=== PATIENT | male | born 1970 | race Caucasian/White ===

== ENCOUNTER 2018-12-20 | Emergency (ER) | payer BC, OTHER | END 2018-12-20 20:26 | disposition home or self-care (01) | CPT/HCPCS: 99499 ==

== ENCOUNTER 2021-05-08 11:11 | Observation (INO) | payer OTHER ==
[2021-05-08] MEDS ORDERED: KETOROLAC 15 MG/ML 1 ML VIAL IVP STA ×2 (11:45→14:22)
--- NOTE | 2021-05-08 11:56 | ED ---
General Adult HPI <Irving Ma - Last Filed: 05/08/21 22:37> - General Source: patient, RN notes reviewed Mode of arrival: ambulatory Limitations: no limitations <Lisa Chavez - Last Filed: 05/08/21 23:33> - General Chief complaint: Extremity Injury, Lower Stated complaint: leg pin Time Seen by Provider: 05/08/21 11:31 - History of Present Illness Initial comments: 50-year-old male presents to the emergency Department with complaints of bilateral lower extremity pain that has been an ongoing issue for several months, but has worsened over the past week and a half to 2 weeks. Pain is not localized, but is worse in the upper portion of the legs; no aggravating or alleviating factors. Describes pain as a constant discomfort similar to a headache or toothache. Able to ambulate without difficulty. States he does not like taking medications therefore has only attempted to treat his symptoms with topical agents. Patient denies injury or trauma, no prolonged immobilization or recent travel, activity changes, fever or chills, chest pain or shortness of breath, abdominal pain, or back pain. (Lisa Chavez) - Related Data Home Medications Medication Instructions Recorded Confirmed Aspirin EC [Ecotrin Low Dose] 81 mg PO DAILY PRN 05/08/21 05/08/21 Allergies Allergy/AdvReac Type Severity Reaction Status Date / Time hydralazine Allergy Unknown Verified 05/08/21 16:58 unknown b/p med AdvReac joint pain Uncoded 05/08/21 14:21 Review of Systems ROS Other: All systems not noted in ROS Statement are negative. <Irving Ma - Last Filed: 05/08/21 22:37> ROS Other: All systems not noted in ROS Statement are negative. <Lisa Chavez - Last Filed: 05/08/21 23:33> ROS Statement: Those systems with pertinent positive or pertinent negative responses have been documented in the HPI. Past Medical History Past Medical History: Hypertension Additional Past Medical History / Comment(s): AAA History of Any Multi-Drug Resistant Organisms: None Reported Additional Past Surgical History / Comment(s): AAA repair Past Psychological History: No Psychological Hx Reported Smoking Status: Never smoker Past Alcohol Use History: Occasional Past Drug Use History: Marijuana <Lisa Chavez - Last Filed: 05/08/21 23:33> General Exam Limitations: no limitations (Well-developed, well-nourished male in no acute distress. Initial temperature 98.1, pulse 108, respirations 18, blood pressure 193/107, pulse ox 99% on room air) General appearance: alert, in no apparent distress Head exam: Present: atraumatic, normocephalic, normal inspection Neck exam: Present: normal inspection. Absent: tenderness, meningismus, lym phadenopathy Respiratory exam: Present: normal lung sounds bilaterally. Absent: respiratory distress, wheezes, rales, rhonchi, stridor Cardiovascular Exam: Present: regular rate, normal rhythm, normal heart sounds. Absent: systolic murmur, diastolic murmur, rubs, gallop, clicks GI/Abdominal exam: Present: soft, normal bowel sounds. Absent: distended, tenderness, guarding, rebound, rigid Left Hip exam: Present: normal inspection, full ROM. Absent: tenderness, swelling Upper Leg exam: Present: normal inspection, full ROM. Absent: tenderness, swelling Knee exam: Present: normal inspection, full ROM. Absent: tenderness, swelling Lower Leg exam: Present: full ROM, swelling (Trace pitting edema of the lower leg). Absent: tenderness, erythema, Homans' sign Ankle exam: Present: normal inspection, full ROM. Absent: tenderness, swelling Foot/Toe exam: Present: normal inspection, full ROM. Absent: tenderness, swelling Neurovascular tendon exam: Present: no vascular compromise. Absent: pulse deficit, abnormal cap refill, motor deficit, sensory deficit Right Hip exam: Present: normal inspection, full ROM. Absent: tenderness, swelling Upper Leg exam: Present: normal inspection, full ROM. Absent: tenderness, swelling Knee exam: Present: normal inspection, full ROM. Absent: tenderness, swelling Lower Leg exam: Present: full ROM, swelling (Trace pitting edema of the lower leg). Absent: tenderness, erythema, Homans' sign Ankle exam: Present: normal inspection, full ROM. Absent: tenderness, swelling Foot/Toe exam: Present: normal inspection, full ROM. Absent: tenderness, swelling Neurovascular tendon exam: Present: no vascular compromise. Absent: pulse deficit, abnormal cap refill, motor deficit, sensory deficit Back exam: Present: normal inspection. Absent: tenderness Neurological exam: Present: alert, oriented X3, CN II-XII intact Psychiatric exam: Present: normal affect, normal mood Skin exam: Present: warm, dry, intact, normal color. Absent: rash <Lisa Chavez - Last Filed: 05/08/21 23:33> Course <Irving Ma - Last Filed: 05/08/21 22:37> <Lisa Chavez - Last Filed: 05/08/21 23:33> Vital Signs 05/08/21 05/08/21 05/08/21 11:15 12:59 16:48 Temperature 98.1 F Pulse Rate 108 H 95 101 H Respiratory 18 19 19 Rate Blood Pressure 193/107 190/109 196/110 O2 Sat by Pulse 99 98 98 Oximetry 05/08/21 05/08/21 05/08/21 17:49 18:35 18:45 Temperature Pulse Rate 81 81 Respiratory Rate Blood Pressure 177/107 166/103 166/103 O2 Sat by Pulse 94 L 95 Oximetry 05/08/21 05/08/21 05/08/21 19:00 19:15 19:30 Temperature Pulse Rate 75 76 78 Respiratory 18 17 18 Rate Blood Pressure 142/86 120/90 145/88 O2 Sat by Pulse 93 L 93 L 92 L Oximetry 05/08/21 05/08/21 05/08/21 20:00 20:30 21:00 Temperature Pulse Rate 78 77 81 Respiratory 16 17 Rate Blood Pressure 138/94 134/81 O2 Sat by Pulse 95 92 L 95 Oximetry 05/08/21 21:30 Temperature Pulse Rate 85 Respiratory 17 Rate Blood Pressure 134/82 O2 Sat by Pulse 95 Oximetry - Reevaluation(s) Reevaluation #1: 05/08/21 19:13 I became involved in the patient's care after CT angiogram chest report was received and discussed with me by JASON Chavez. CT showed thoracic aorta dissection. I discussed these findings with the radiologist that read the study, and he recommended obtaining a CT angiogram abdomen/pelvis for further evaluation. The patient's blood pressure was further managed with IV labetalol while this CT was being obtained. Upon receiving the CT angiogram abdomen/pelvis findings, Dr. Avila (vascular surgery) was called and the patient's case and imaging findings were discussed with him myself. Dr. Avila reviewed the patient's imaging studies himself. He recommended transferring the patient to [facility] where the patient had his prior aortic dissection repair surgery. 05/08/21 19:44 Patient's case and imaging findings today were discussed with Dr. Philip at the [facility]. He states that he feels that the patient's imaging findings today are likely chronic when he compares them to the imaging findings that he has on record through the [facility] system. He asks that we forward our images to them, so he can compare the imaging studies himself, and he states that he will then call back with his recommendations. 05/08/21 20:34 Still awaiting callback from [facility]. Patient's blood pressure has currently improved to 120/90. Patient denies development of any new pain or symptoms while in the ED. 05/08/21 21:[address] [facility] [address] Yasmine Recinos just called me and she sta norma that she electronically received the patient's study images from today. She states that the patient's images were reviewed by their cardiothoracic surgeon, Dr. Gutierrez, and compared to the most recent images that they have on record for the patient. She states that all the patient's imaging findings are chronic and unchanged with regards to his dissections. They do not feel that there is any r bethanie to transfer the patient out of our facility due to these findings. 05/08/21 22:08 Dr. Frey was contacted and updated about all of the above. He states that he feels comfortable keeping the patient here at our hospital and managing and patient himself as originally planned. He has no further recommendations at this time. (Irving Ma) 05/08/21 11:57 Discussed elevated blood pressure and heart rate with patient who states he is not surprised. He acknowledges that he is supposed to be taking blood pressure medications, however states he has not been to the doctor in a year or more. 05/08/21 14:[address] Frey regarding this patient's elevated blood pressure and medication noncompliance. He prefers to admit this patient for observation in effort to get blood pressure under control. Does request the patient has a d- dimer and follow-up studies as necessary given his history. Oral antihypertensive medications ordered per Dr. Frey's direction. Plan of care discussed with patient. He is agreeable. 05/08/21 17:44 CT report was reviewed showing some alarming findings therefore spoke with my attending who assisted in for the evaluation and treatment of this patient. Patient reassessed with physician at bedside and continues to insist that he has no neck, back, chest, or abdominal pain. Reports discomfort in his legs has improved considerably. (Lisa Chavez) Medical Decision Making - Lab Data Result diagrams: 05/08/21 12:03 05/08/21 12:03 <Irving Ma - Last Filed: 05/08/21 22:37> - Lab Data Result diagrams: 05/08/21 12:03 05/08/21 12:03 - Radiology Data Radiology results: report reviewed, image reviewed <Lisa Chavez - Last Filed: 05/08/21 23:33> - Medical Decision Making This is a 50-year-old male with a history of AAA repair and hypertension who presents to the emergency Department with complaints of bilateral lower extremity pain. Patient does not take any medications and has had poor compliance with medical care due to issues with insurance. Upon exam, patient is well-appearing and in no acute distress. Lung sounds are clear; heart rate is regular. He is constantly moving his legs in attempt to find a position of comfort. Trace pitting lower extremity edema noted bilaterally. Pedal pulses +2 bilateral. Patient is ambulating without difficulty. Patient is noted to be hypertensive (193/107) which was discussed with patient and he states he is no longer taking any medications. Also spoke with patient about his past medical h istory significant for an aortic dissection; he states this occurred 7 years ago and his care was done at [facility]. Laboratory studies were obtained showing macrocytosis, elevated total bilirubin and AST, though patient does admit to drinking EtOH last night, and an elevated d-dimer. CTs of the chest, abdomen, and pelvis had findings concerning extensive aortic dissection; this was determined to be chronic (as detailed above). Physical exam findings support this conclusion. Anti-hypertensives given with improvement. Leg pain improved with meds. Patient is admitted to this hospital for further evaluation and treatment. This patient's care was facilitated in cooperation with my attending Dr. Ma. (Lisa Chavez) - Lab Data Lab Results 05/08/21 05/08/21 Range/Units 12:03 12:03 WBC 5.5 (3.8-10.6) k/uL RBC 4.28 L (4.30-5.90) m/uL Hgb 16.1 (13.0-17.5) gm/dL Hct 46.3 (39.0-53.0) % MCV 108.1 H (80.0-100.0) fL MCH 37.7 H (25.0-35.0) pg MCHC 34.9 (31.0-37.0) g/dL RDW 15.1 (11.5-15.5) % Plt Count 141 L (150-450) k/uL MPV 7.5 Neutrophils % 58 % Lymphocytes % 30 % Monocytes % 7 % Eosinophils % 2 % Basophils % 1 % Neutrophils # 3.2 (1.3-7.7) k/uL Lymphocytes # 1.7 (1.0-4.8) k/uL Monocytes # 0.4 (0-1.0) k/uL Eosinophils # 0.1 (0-0.7) k/uL Basophils # 0.0 (0-0.2) k/uL Macrocytosis Marked A Sodium 144 (137-145) mmol/L Potassium 4.0 (3.5-5.1) mmol/L Chloride 106 (98-107) mmol/L Carbon Dioxide 26 (22-30) mmol/L Anion Gap 12 mmol/L BUN <2 L (9-20) mg/dL Creatinine 0.82 (0.66-1.25) mg/dL Est GFR (CKD-EPI)AfAm >90 (>60 ml/min/1.73 sqM) Est GFR (CKD-EPI)NonAf >90 (>60 ml/min/1.73 sqM) Glucose 127 H (74-99) mg/dL Calcium 8.4 (8.4-10.2) mg/dL Total Bilirubin 3.0 H (0.2-1.3) mg/dL AST 158 H (17-59) U/L ALT 34 (4-49) U/L Alkaline Phosphatase 92 (38-126) U/L Total Protein 6.6 (6.3-8.2) g/dL Albumin 3.4 L (3.5-5.0) g/dL - Radiology Data Venous Doppler study was obtained of the bilateral lower extremities. Report was reviewed in its entirety. Impression per Dr. Mann is normal flow, compressibility, and vascular waveforms. No DVT of the bilateral lower extremities. CT chest anterior was obtained. Report was reviewed in its entirety. Im pression per Dr. 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 Lower extent of the dissection not included on the exam. The dissection extends below the diaphragm. No evidence of pulmonary embolism. Fa tty infiltration of the liver. CT angiogram of the and pelvis was obtained. Report was reviewed in its entirety. Impression per Dr. Guzmán is dissection of the abdominal aorta extending into the iliac arteries bilaterally as above. 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 There is also dissection extending into the superior mesenteric artery. 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 Multiple gallstones. Fatty infiltration of the liver. Extensive a mass appears to contain some fat in the upper pole of the right kidney could be angiomyolipoma or atypical cyst. (Lisa Chavez) Disposition <Irving Ma - Last Filed: 05/08/21 22:37> Decision Time: 14:30 <Lisa Chavez - Last Filed: 05/08/21 23:33> Clinical Impression: Leg pain, bilateral, Hypertensive urgency Disposition: ADMITTED IP TO THIS HOSP Condition: Serious
[2021-05-08 12:10] LABS: Basophils % (A) 1 %; Eosinophils # (A) 0.1 k/uL (0-0.7); Eosinophils % (A) 2 %; HCT 46.3 % (39.0-53.0); HGB 16.1 gm/dL (13.0-17.5); Lymphocytes # (A) 1.7 k/uL (1.0-4.8); Lymphocytes % (A) 30 %; MCH 37.7 pg (25.0-35.0); MCHC 34.9 g/dL (31.0-37.0); MCV 108.1 fL (80.0-100.0); Macrocytosis Marked; Mean Platelet Volume 7.5; Monocytes # (A) 0.4 k/uL (0-1.0); Monocytes % (A) 7 %; Neutrophils # (A) 3.2 k/uL (1.3-7.7); Neutrophils % (A) 58 %; Platelet Count 141 k/uL (150-450); RBC 4.28 m/uL (4.30-5.90); RDW 15.1 % (11.5-15.5); WBC 5.5 k/uL (3.8-10.6)
[2021-05-08 12:19] LABS: ALT 34 U/L (4-49); AST 158 U/L (17-59); African American GFR (CKD) >90 (>60 ml/min/1.73 sqM); Albumin 3.4 g/dL (3.5-5.0); Alkaline Phosphatase 92 U/L (38-126); Anion Gap 12 mmol/L; Blood Urea Nitrogen <2 mg/dL (9-20); Calcium 8.4 mg/dL (8.4-10.2); Carbon Dioxide 26 mmol/L (22-30); Chloride 106 mmol/L (98-107); Glucose 127 mg/dL (74-99); Non-African American GFR(CKD) >90 (>60 ml/min/1.73 sqM); Sodium 144 mmol/L (137-145); Total Protein 6.6 g/dL (6.3-8.2)
--- NOTE | 2021-05-08 13:10 | US ---
EXAMINATION TYPE: US venous doppler duplex LE DATE OF EXAM: 05/08/2021 12:58 PM COMPARISON: NONE CLINICAL HISTORY: BLE edema and pain. EC patient with leg pain, especially calf pain; Wears compressi on stocking left lower leg. SIDE PERFORMED: Bilateral TECHNIQUE: The lower extremity deep venous system is examined utilizing real time linear array sonog milady with graded compression, doppler sonography and color-flow sonography. VESSELS IMAGED: Common Femoral Vein Deep Femoral Vein Greater Saphenous Vein * Femoral Vein Popliteal Vein Small Saphenous Vein * Proximal Calf Veins (* superficial vessels) Right Leg: Negative for DVT Left Leg: Negative for DVT IMPRESSION: Grayscale, color doppler, spectral doppler imaging performed of the deep veins of the lo wer extremities. There is normal flow, compressibility, vascular waveforms No DVT of the bilateral lower extremities.
[2021-05-08] MEDS ORDERED: HYDROcodone/APAP 5-325MG 1 EACH TAB PO STA (14:43)
[2021-05-08] MEDS ORDERED: LOSARTAN 50 MG TAB PO STA (15:38)
[2021-05-08] MEDS ORDERED: cloNIDine HCL 0.1 MG TAB PO STA (15:38)
[2021-05-08] MEDS ORDERED: HYDROcodone/APAP 5-325MG 1 EACH TAB PO PRN (15:39)
[2021-05-08] MEDS ORDERED: IBUPROFEN 400 MG TAB PO PRN (15:39)
[2021-05-08] MEDS ORDERED: NALOXONE 0.4 MG/ML 1 ML VIAL IV PRN (15:39)
--- NOTE | 2021-05-08 16:17 | HP ---
HISTORY AND PHYSICAL CHIEF COMPLAINT: Pain in the lower extremities. HISTORY OF PRESENT ILLNESS: This is another admission for this gentleman who was treated in the past for hypertension. He has a history going back to 2013, when he had a surgical procedure which probably was related to the ascending aorta. He might have had a dissection. He is unclear of the history and I do not have all the details. He does have a history of significant hypertension and has not been seen since September of 2018. He has been on no medications of late. At that time he was on clonidine, losartan, , labetalol and SBE prophylaxis. He presented to the emergency room with pain in the lower extremities, where he had no significant evidence of vascular insufficiency, neurologic insufficiency, swelling, etc. In the emergency room his blood pressure was 194/109. REVIEW OF SYSTEMS: He denies any headache, neurologic deficits, change in the vision or the hearing, chest pain, cough, hemoptysis, orthopnea, PND, abdominal pain, nausea, vomiting, diarrhea, melena, hematochezia, jaundice, hepatitis, cirrhosis, hematuria, frequency, urgency, incontinence, diabetes, etc. Past medical history, family history, and personal and social histories are all otherwise essentially unremarkable except for what was already mentioned. He CANNOT TAKE HYDRALAZINE. He has been told in the past that he had a mass on one kidney. He is not a smoker. PHYSICAL EXAMINATION: Blood pressure is 190/99 with a pulse of 91, respirations of 32. He is afebrile. In general he appeared to be well developed, well nourished, in no acute distress. Skin color is normal. Skin is warm and dry. Lymph nodes are not enlarged. Head, ears, eyes, nose, mouth and throat are normal. Neck veins are not distended. Thyroid is not enlarged. Chest is clear. Cardiac exam demonstrates sinus tachycardia. The abdomen is soft and non-tender. Extremities are normal. There is no edema. He has normal motor function and he seems to have palpable pulses. Neurologically he is intact. He is admitted to the hospital with the diagnoses: 1. Pain in the lower extremities. 2. Hypertension; hypertensive urgency. 3. History of aortic dissection. PLAN: 1. Bedrest. 2. D-dimer. 3. Control hypertension. 4. Rule out aortic disease. 5. Rule out vascular disease of lower extremities. MMODL / IJN: [id number] /
--- NOTE | 2021-05-08 17:47 | CT ---
EXAMINATION TYPE: CT chest angio for PE DATE OF EXAM: 05/08/2021 COMPARISON: None HISTORY: Elevated d-dimer and bilateral leg pain. History of AAA repair. CT DLP: 829.2 mGycm Automated exposure control for dose reduction was used. CONTRAST: Performed with IV Contrast, patient injected with 100ml mL of Isovue 370. Images obtained from the thoracic inlet to the diaphragm with IV contrast. There are 3-D post process ed images. The lungs are clear of infiltrate. There is no pleural effusion. There is no pericardial effusion. He art size is fairly normal. There is dissection of the thoracic aorta extending from the top of the aortic arch and involving the entire descending thoracic aorta extending into the abdominal aorta. The true lumen is anterior and small. There is dissection extending into the left subclavian artery. The innominate artery and the l eft common carotid artery show no sign of dissection. The aortic arch measures 4.1 cm. There is no evidence of filling defect in the pulmonary arteries. There is some fatty infiltration of the liver. Lasix spine is intact. Sternum is intact. There are sternal wires. IMPRESSION: There is dissecting thoracic aortic aneurysm extending from the left subclavian artery and involving the left subclavian artery. Lower extent of the dissection not included on the exam. The dissection e xtends below the diaphragm. No evidence of pulmonary embolism. Fatty infiltration of the liver.
[2021-05-08] MEDS ORDERED: LABETALOL 5 MG/ML VIAL MDV IVP STA (18:12)
--- NOTE | 2021-05-08 18:51 | CT ---
EXAMINATION TYPE: CT angio abdomen pelvis DATE OF EXAM: 05/08/2021 COMPARISON: None HISTORY: Bilateral leg pain. History of AAA repair. CT DLP: 1329.2 mGycm Automated exposure control for dose reduction was used. CONTRAST: Performed with IV Contrast, patient injected with 100ml mL of Isovue 370. There are 3-D post processed images. There is fatty infiltration of the liver. The bile ducts are not dilated. There are calcified small g allstones. Spleen is intact. The stomach is intact. There is no pancreatic mass. There is no adrenal mass. Kidneys show satisfactory contrast opacification. There is no hydronephrosi s. There is 2.6 cm mixed density mass upper pole right kidney. This could be angiomyolipoma. There is no mesenteric edema. There is no ascites or free air. There is no bowel obstruction. Appendi x is normal. The lumbar vertebra have normal alignment. Posterior elements are intact. There is no compression fra cture. Bony pelvis is intact. There is dissection of the thoracic aorta and the abdominal aorta. The true lumen is anterior and on the right side and relatively small. The dissection extends from the thoracic aorta to the common trip ac arteries bilaterally. Dissection extends into the right internal and external iliac arteries as we ll. There is arterial flow in both femoral arteries. No evidence of hemodynamic stenosis of the femor al and iliac arteries. There is arterial flow in the superior mesenteric artery. There appears to be thrombosis in the super ior mesenteric artery 6 cm from the origin. 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 There i s arterial flow in both renal arteries without evidence of hemodynamic stenosis. IMPRESSION: There is dissection of the abdominal aorta extending into the iliac arteries bilaterally as above. Th ere is 2.6 cm aneurysm of the left common iliac artery. There is there is also dissection extending into the superior mesenteric artery. There is subtotal oc clusion of the celiac artery. 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 Multiple small gallstones. Fatty infiltration of the liver. Mixed density mass appears to contain some fat in the upper pole right kidney could be angiomyolipoma or atypical cyst.
[2021-05-08 19:07] LABS: INR 1.2 (<1.2); Partial Thromboplastin Time 26.7 sec (22.0-30.0); Prothrombin Time 12.1 sec (9.0-12.0)
[2021-05-09] MEDS: LABETALOL 100 MG TAB PO SCH (08:31)
[2021-05-09 08:42] LABS: Basophils % (A) 0 %; Eosinophils % (A) 1 %; HCT 42.5 % (39.0-53.0); Lymphocytes # (A) 0.7 k/uL (1.0-4.8); Lymphocytes % (A) 11 %; MCH 37.6 pg (25.0-35.0); MCHC 35.3 g/dL (31.0-37.0); MCV 106.4 fL (80.0-100.0); Macrocytosis Moderate; Mean Platelet Volume 7.8; Monocytes # (A) 0.3 k/uL (0-1.0); Monocytes % (A) 5 %; Neutrophils # (A) 4.9 k/uL (1.3-7.7); Neutrophils % (A) 82 %; Platelet Count 113 k/uL (150-450); RBC 3.99 m/uL (4.30-5.90); RDW 14.2 % (11.5-15.5)
[2021-05-09 08:57] LABS: African American GFR (CKD) >90 (>60 ml/min/1.73 sqM); Anion Gap 8 mmol/L; Blood Urea Nitrogen 2 mg/dL (9-20); Calcium 8.5 mg/dL (8.4-10.2); Carbon Dioxide 25 mmol/L (22-30); Chloride 102 mmol/L (98-107); Glucose 123 mg/dL (74-99); Non-African American GFR(CKD) >90 (>60 ml/min/1.73 sqM); Potassium 3.9 mmol/L (3.5-5.1); Sodium 135 mmol/L (137-145)
[2021-05-09] MEDS ORDERED: ASPIRIN 81 MG PO PRN (11:51)
[2021-05-09] MEDS: lisinopriL 20 MG TAB PO SCH (12:36)
[2021-05-09] MEDS: DOXAZOSIN 4 MG TAB PO SCH (12:36)
[2021-05-09] MEDS: cloNIDine HCL 0.1 MG TAB PO SCH ×3 (12:37→21:13)
--- NOTE | 2021-05-09 13:45 | PN ---
PROGRESS NOTE CHIEF COMPLAINT: Back and leg pain with hypertensive urgency. HISTORY OF PRESENT ILLNESS: This gentleman is doing better. He is not having any chest pain, shortness of breath, abdominal pain, etc. The pains that he has been getting, apparently, are shooting pains in the legs. PHYSICAL EXAMINATION: Chest is clear. Cardiac exam is normal. Abdomen is protuberant, soft and nontender. Extremities are normal. IMPRESSION: 1. Back and leg pain, etiology unknown. 2. Hypertensive urgency. 3. History of aortic dissection. PLAN: Increase medication program in an effort to drive his blood pressure into normal range. Once that is accomplished, he can be discharged. MMODL / IJN: [id number] /
[2021-05-10 08:53] VITALS: TEMP 97.9
[2021-05-10] MEDS: lisinopriL 20 MG TAB PO SCH (09:03)
[2021-05-10] MEDS: cloNIDine HCL 0.1 MG TAB PO SCH ×2 (09:04→16:42)
[2021-05-10] MEDS: LABETALOL 100 MG TAB PO SCH (09:04)
[2021-05-10] MEDS: DOXAZOSIN 4 MG TAB PO SCH (09:04)
[2021-05-10 11:47] VITALS: BP 144/84; PULSE 66; RESP 18
--- NOTE | 2021-05-10 19:19 | DS ---
DISCHARGE SUMMARY CHIEF COMPLAINT: Back pain and dysesthesias in the legs. HISTORY OF PRESENT ILLNESS AND PHYSICAL EXAMINATION: Details of this man's history and physical can be found in the initial workup. LABORATORY STUDIES: While he was in the hospital he had laboratory studies, details of which can be found in the laboratory section of his chart. COURSE IN THE HOSPITAL: After admission he was placed on bedrest, started on intravenous fluids, and efforts were made to bring his blood pressure down as quickly as possible. There was concern that he may have an aortic dissection, but his suggested that there had been no change since his last evaluation several years ago. In the hospital he did well. Blood pressures were brought fairly quickly. He had no further difficulty with back pain, dysesthesias in the legs, etc. It was felt that he could be discharged, and he will be followed up in the office in several days. FINAL DIAGNOSIS: 1. Hypertensive urgency. 2. History of aortic dissection. OPERATIONS: None. CONSULTATION: Cardiology. He is improved. MMODL / IJN: [id number] /
== END 2021-05-10 17:00 | disposition home or self-care (01) ==
LOC: EC 11:11 → 3SCARD 15:33
PROVIDERS: ADMIT Family Medicine; ATTEND Family Medicine
DX: I16.0 Hypertensive urgency (principal); I71.01 Dissection of thoracic aorta; I10 Essential (primary) hypertension; N28.89 Other specified disorders of kidney and ureter; D75.89 Other specified diseases of blood and blood-forming organs; R79.89 Other specified abnormal findings of blood chemistry; R79.1 Abnormal coagulation profile; I72.3 Aneurysm of iliac artery; K76.0 Fatty (change of) liver, not elsewhere classified; K80.20 Calculus of gallbladder without cholecystitis without obstruction; I71.4 Abdominal aortic aneurysm, without rupture; M54.9 Dorsalgia, unspecified; M79.604 Pain in right leg; M79.605 Pain in left leg; Z20.822 Contact with and (suspected) exposure to COVID-19; Z91.128 Patient's intentional underdosing of medication regimen for other reason; T46.5X6A Underdosing of other antihypertensive drugs, initial encounter; Z91.19 Patient's noncompliance with other medical treatment and regimen; Z86.79 Personal history of other diseases of the circulatory system; Z88.8 Allergy status to other drugs, medicaments and biological substances
CPT/HCPCS: 96374; 96375; 99285; 36415; 85379; 80053; 80048; 84484; 85025 ×2; 85610; 85730; 83036; 87635; 93970; 71275; 74174; G0378 ×3; J1885; Q9967

== ENCOUNTER 2021-05-19 20:04 | Emergency (ER) | payer OTHER ==
[2021-05-19 20:41] LABS: Basophils % (A) 1 %; Eosinophils # (A) 0.1 k/uL (0-0.7); Eosinophils % (A) 1 %; HCT 42.3 % (39.0-53.0); HGB 14.7 gm/dL (13.0-17.5); Lymphocytes # (A) 0.9 k/uL (1.0-4.8); Lymphocytes % (A) 10 %; MCH 37.7 pg (25.0-35.0); MCHC 34.6 g/dL (31.0-37.0); MCV 108.9 fL (80.0-100.0); Macrocytosis Marked; Mean Platelet Volume 7.8; Monocytes # (A) 0.3 k/uL (0-1.0); Monocytes % (A) 4 %; Neutrophils # (A) 7.5 k/uL (1.3-7.7); Neutrophils % (A) 84 %; RBC 3.89 m/uL (4.30-5.90); RDW 13.8 % (11.5-15.5); WBC 8.9 k/uL (3.8-10.6)
[2021-05-19 20:42] LABS: Platelet Count 192 k/uL (150-450)
[2021-05-19 20:54] LABS: INR 1.1 (<1.2); Partial Thromboplastin Time 25.8 sec (22.0-30.0); Prothrombin Time 11.8 sec (9.0-12.0)
[2021-05-19 21:09] LABS: ALT 24 U/L (4-49); AST 110 U/L (17-59); African American GFR (CKD) >90 (>60 ml/min/1.73 sqM); Albumin 3.2 g/dL (3.5-5.0); Alkaline Phosphatase 89 U/L (38-126); Anion Gap 10 mmol/L; Blood Urea Nitrogen 4 mg/dL (9-20); Calcium 8.5 mg/dL (8.4-10.2); Carbon Dioxide 26 mmol/L (22-30); Chloride 105 mmol/L (98-107); Glucose 136 mg/dL (74-99); Magnesium 1.4 mg/dL (1.6-2.3); Non-African American GFR(CKD) >90 (>60 ml/min/1.73 sqM); Potassium 4.3 mmol/L (3.5-5.1); Sodium 141 mmol/L (137-145); Total Bilirubin 1.8 mg/dL (0.2-1.3); Total Protein 6.3 g/dL (6.3-8.2)
[2021-05-19] MEDS ORDERED: PANTOPRAZOLE 40 MG/10 ML VIAL IVP STA (21:46)
[2021-05-19] MEDS ORDERED: ONDANSETRON 4 MG/2 ML VIAL IVP STA (21:46)
[2021-05-19] MEDS ORDERED: MORPHINE SULFATE 4 MG/ML SYRINGE IVP STA (21:46)
[2021-05-19] MEDS ORDERED: SODIUM CHLORIDE 0.9% 1,000 ML IV STA (21:46)
--- NOTE | 2021-05-19 21:47 | XR ---
EXAMINATION TYPE: XR chest 2V DATE OF EXAM: 05/19/2021 COMPARISON: NONE HISTORY: Chest pain TECHNIQUE: Frontal and lateral views of the chest are obtained. FINDINGS: There is no focal air space opacity. No evidence for pneumothorax. No pleural effusion. The cardiac silhouette size is within normal limits. The osseous structures are grossly intact. IMPRESSION: 1. No acute cardiopulmonary process.
--- NOTE | 2021-05-19 22:07 | ED ---
Chest Pain HPI - General Chief Complaint: Chest Pain Stated Complaint: Chest Pain Time Seen by Provider: 05/19/21 21:36 Source: patient, RN notes reviewed, old records reviewed Mode of arrival: ambulatory Limitations: no limitations - History of Present Illness Initial Comments: This is a 50-year-old male to the ER for evaluation today. Today's presents today for evaluation regards to bloating abdominal pain epigastric abdominal pain with nausea no vomiting no travel history no sick contacts. Patient has no prior history of similar complaint. No prior surgical history does have history of AAA with AAA repair. She has high blood pressure MD Complaint: chest pain -: hour(s) Onset: during rest Pain Location: substernal, epigastric Pain Radiation: back Severity: moderate Severity scale (1-10): 4 Quality: aching, sharp Consistency: intermittent Improves With: nothing Worsens With: nothing Anginal Symptoms: nausea Other Symptoms: acid taste in mouth Treatments Prior to Arrival: none - Related Data Home Medications Medication Instructions Recorded Confirmed Aspirin EC [Ecotrin Low Dose] 81 mg PO DAILY PRN 05/08/21 05/19/21 Previous Rx's Medication Instructions Recorded Doxazosin [Cardura] 4 mg PO DAILY #30 tab 05/10/21 Labetalol [Trandate] 300 mg PO DAILY #30 tab 05/10/21 cloNIDine HCL [Catapres] 0.3 mg PO TID #90 tab 05/10/21 lisinopriL [Zestril] 40 mg PO DAILY #30 tab 05/10/21 Allergies Allergy/AdvReac Type Severity Reaction Status Date / Time hydralazine Allergy Unknown Verified 05/19/21 23:05 unknown b/p med AdvReac joint pain Uncoded 05/19/21 20:16 Review of Systems ROS Statement: Those systems with pertinent positive or pertinent negative responses have been documented in the HPI. ROS Other: All systems not noted in ROS Statement are negative. EKG Findings - EKG Comments: EKG Findings:: EKG is sinus rhythm 67 NH 200 l QRS 92 QTC 481 Past Medical History Past Medical History: Hypertension Additional Past Medical History / Comment(s): AAA to thorasis level History of Any Multi-Drug Resistant Organisms: None Reported Additional Past Surgical History / Comment(s): AAA repair - 7 years ago at [facility] Past Anesthesia/Blood Transfusion Reactions: No Reported Reaction Past Psychological History: No Psychological Hx Reported Smoking Status: Never smoker Past Alcohol Use History: Occasional Past Drug Use History: Marijuana General Exam Limitations: no limitations General appearance: alert, in no apparent distress, obese Head exam: Present: atraumatic, normocephalic, normal inspection Eye exam: Present: normal appearance, PERRL, EOMI. Absent: scleral icterus, conjunctival injection, periorbital swelling ENT exam: Present: normal exam, mucous membranes moist Neck exam: Present: normal inspection. Absent: tenderness, meningismus, lymphadenopathy Respiratory exam: Present: normal lung sounds bilaterally. Absent: respiratory distress, wheezes, rales, rhonchi, stridor Cardiovascular Exam: Present: regular rate, normal rhythm, normal heart sounds. Absent: systolic murmur, diastolic murmur, rubs, gallop, clicks GI/Abdominal exam: Present: soft, tenderness (Epigastric right upper quadrant), normal bowel sounds. Absent: distended, guarding, rebound, rigid Extremities exam: Present: normal inspection, full ROM, normal capillary refill. Absent: tenderness, pedal edema, joint swelling, calf tenderness Back exam: Present: normal inspection Neurological exam: Present: alert, oriented X3, CN II-XII intact Psychiatric exam: Present: normal affect, normal mood Skin exam: Present: warm, dry, intact, normal color. Absent: rash Course Vital Signs 05/19/21 05/19/21 05/20/21 20:11 22:50 00:30 Temperature 98.7 F Pulse Rate 66 79 79 Respiratory 22 18 18 Rate Blood Pressure 171/95 199/114 164/94 O2 Sat by Pulse 97 98 Oximetry 05/20/21 05/20/21 00:50 02:00 Temperature Pulse Rate 78 75 Respiratory 18 18 Rate Blood Pressure 178/102 149/81 O2 Sat by Pulse 97 97 Oximetry - Reevaluation(s) Reevaluation #1: 05/20/21 03:00 Medical record is reviewed Reevaluation #2: 05/20/21 03:00 Patient resting comfortably, sleeping in, Reevaluation #3: 05/20/21 03:00 Patient informed results and questions answered Reevaluation #4: 05/20/21 03:00 Patient states he feels good for recurrent discharge Chest Pain MDM - MDM 50 male to the emergency department for evaluation today. Patient coming in for evaluation abdominal pain bloating fullness indigestion type symptoms. Patient does appear to have biliary colic will prefer outpatient testing going forward and patient can be discharged home Disposition Clinical Impression: Atypical chest pain, Biliary colic Disposition: HOME SELF-CARE Condition: Good Instructions (If sedation given, give patient instructions): Biliary Colic (ED) Is patient prescribed a controlled substance at d/c from ED?: No Referrals: Jonh Frey MD [Primary Care Provider] - 1-2 days
[2021-05-19 22:52] VITALS: RESP 18
[2021-05-19] MEDS: MAGNESIUM SULFATE-D5W PMX 1 GM in DEXTROSE/WATER 1 100ML.BAG IVPB SCH (22:52)
--- NOTE | 2021-05-19 22:52 | CT ---
EXAMINATION TYPE: CT angio chest DATE OF EXAM: 05/19/2021 COMPARISON: 05/08/2021 HISTORY: CP, abdominal pain. Cardiac hx CT DLP: 2871.4 mGycm Automated exposure control for dose reduction was used. CONTRAST: Performed with IV Contrast, patient injected with 100 mL of Isovue 370. Images obtained from the thoracic inlet to the diaphragm with IV contrast. There are Three-D postproc essed images. The lungs are clear of infiltrate. There is no pleural effusion. Heart size is normal. There is no pe ricardial effusion. There is no mediastinal adenopathy. There is differential enhancement of the aortic arch and the desc ending thoracic aorta related to dissection that is extending from the top of the arch to the upper a bdominal aorta. The false lumen is posterior. There is normal contrast opacification of the pulmonary arteries. There are no filling defects. There is some fatty infiltration of the liver. IMPRESSION: No evidence of pulmonary embolism. There is dissection of the thoracic aorta extending from the top o f the aortic arch at the left subclavian artery to the abdomen without change in appearance compared to old exam. There is no significant aneurysm.
[2021-05-19] MEDS ORDERED: LABETALOL 5 MG/ML VIAL MDV IVP STA ×2 (22:53)
--- NOTE | 2021-05-19 22:59 | CT ---
EXAMINATION TYPE: CT abdomen pelvis w con DATE OF EXAM: 05/19/2021 COMPARISON: 05/08/2021 HISTORY: CP, abdominal pain. Cardiac hx CT DLP: 2871.4 mGycm Automated exposure control for dose reduction was used. CONTRAST: Performed with IV Contrast, patient injected with 100 mL of Isovue 370. Images obtained from the diaphragm to the floor of the pelvis with IV contrast. Lung bases are clear. There is no pleural effusion. Heart size is normal. There is no pericardial eff usion. There is dissection of the lower thoracic aorta and the abdominal aorta extending to the bifur cation and into the common iliac arteries bilaterally. There is insufficient contrast for good evalua tion of the dissection. There is some fatty infiltration of the liver. Liver and spleen are intact. There is no pancreatic ma ss. The stomach is intact. The bile ducts are not dilated. There are multiple calcified gallstones. There is no adrenal mass. There is mixed density mass in the upper pole right kidney that measures 3. 3 cm. This appears to contain some fat and is probably an angiomyolipoma. There is no hydronephrosis. Kidneys have normal size. There is no retroperitoneal adenopathy. Bladder distends smoothly. Ureters are not dilated. There is no inguinal hernia. There is no free fluid in t he pelvis. There is no mesenteric edema. There is no ascites or free air. Appendix is small. The lumbar vertebrae have normal alignment. There is no compression fracture. The bony pelvis is inta ct. The hip joints are intact. 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 IMPRESSION: There is abdominal aortic dissection extending into the common iliac arteries and not changed in appe arance compared to recent CT scan. There is mixed density mass upper pole right kidney suggestive of angiomyolipoma without change. Cholelithiasis. Fatty infiltration of the liver. 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
[2021-05-20] MEDS: MAGNESIUM SULFATE-D5W PMX 1 GM in DEXTROSE/WATER 1 100ML.BAG IVPB SCH (00:08)
--- NOTE | 2021-05-20 01:20 | US ---
EXAMINATION TYPE: US gallbladder DATE OF EXAM: 05/20/2021 COMPARISON: CT CLINICAL HISTORY: pain. Pain. EXAM MEASUREMENTS: Liver Length: 19.5 cm Gallbladder Wall: 0.32 cm CBD: 0.45 cm Right Kidney: 8.7 x 4.7 x 4.8 cm Limited due to gas and patient body habitus. Pancreas: Not well seen. Liver: Appears enlarged and coarse with increased echogenicity. Limited. Gallbladder: Appears enlarged measuring 11.2 cm in length and 4.5 cm in width. Wall measures upper l imits of normal. Probable hyperechoic foci within neck, limited visibility. Evidence for sonographic Panda's sign: No. CBD: Portions seen appear wnl. Right Kidney: Appears slightly small in size. Limited visibility. IMPRESSION: Fatty infiltration of the liver. Mildly dilated gallbladder suggestive of gallbladder dysfunction or cholecystitis. Cholelithiasis. No dilated ducts.
[2021-05-20 05:20] VITALS: PULSE 78
[2021-05-20 05:21] VITALS: BP 149/84; TEMP 98.1
== END 2021-05-20 04:40 | disposition home or self-care (01) ==
LOC: EC 20:04
DX: K80.50 Calculus of bile duct without cholangitis or cholecystitis without obstruction (principal); R07.89 Other chest pain; I10 Essential (primary) hypertension; F12.90 Cannabis use, unspecified, uncomplicated; Z79.82 Long term (current) use of aspirin
CPT/HCPCS: 99285; 96365; 96375 ×4; 96361 ×2; 36415; 93005; 85379; 80053; 83690; 83735; 84484; 85025; 85610; 85730; 71046; 71275; 74177; J2270; J2405; J3475; C9113; Q9967; 76705

== ENCOUNTER 2021-08-15 02:35 | Emergency (ER) | payer OTHER ==
[2021-08-15] MEDS ORDERED: GABAPENTIN 100 MG CAP PO STA (03:02)
[2021-08-15] MEDS ORDERED: CYCLOBENZAPRINE 10 MG TAB PO STA (03:02)
[2021-08-15] MEDS ORDERED: CYCLOBENZAPRINE 10MG STARTER 3 TAB BTL PO STA (03:02)
--- NOTE | 2021-08-15 03:04 | ED ---
Lower Extremity Injury HPI - General Chief Complaint: Extremity Injury, Lower Stated Complaint: pain in legs Time Seen by Provider: 08/15/21 02:43 Source: patient, RN notes reviewed, old records reviewed Mode of arrival: ambulatory Limitations: no limitations - History of Present Illness Initial Comments: This is a 51-year-old male to the emergency department for evaluation patient presents today for evaluation regards to bilateral lower extremity pain and numbness and tingling. Patient is able to ambulate able to drink without difficulty does admit to drinking alcohol today for the pain. No abdominal pain and no other real significant complaints. MD Complaint: other (biLateral leg numbness and tingling) Injury: Leg: Right, Left Place: home Severity: mild Severity scale (1-10): 3 Improves With: nothing Worsens With: nothing Context: other (none) Other Symptoms: other (none) Associated Symptoms: tingling Treatments Prior to Arrival: NSAIDS - Related Data Home Medications Medication Instructions Recorded Confirmed Aspirin EC [Ecotrin Low Dose] 81 mg PO DAILY PRN 05/08/21 05/19/21 Previous Rx's Medication Instructions Recorded Doxazosin [Cardura] 4 mg PO DAILY #30 tab 05/10/21 Labetalol [Trandate] 300 mg PO DAILY #30 tab 05/10/21 cloNIDine HCL [Catapres] 0.3 mg PO TID #90 tab 05/10/21 lisinopriL [Zestril] 40 mg PO DAILY #30 tab 05/10/21 Cyclobenzaprine [Flexeril] 10 mg PO HS #30 tab 08/15/21 Allergies Allergy/AdvReac Type Severity Reaction Status Date / Time hydralazine Allergy Unknown Verified 08/15/21 02:40 unknown b/p med AdvReac joint pain Uncoded 08/15/21 02:40 Review of Systems ROS Statement: Those systems with pertinent positive or pertinent negative responses have been documented in the HPI. ROS Other: All systems not noted in ROS Statement are negative. Past Medical History Past Medical History: Hypertension Additional Past Medical History / Comment(s): AAA to thorasis level History of Any Multi-Drug Resistant Organisms: None Reported Additional Past Surgical History / Comment(s): AAA repair - 7 years ago at [facility] Past Anesthesia/Blood Transfusion Reactions: No Reported Reaction Past Psychological History: No Psychological Hx Reported Smoking Status: Never smoker Past Alcohol Use History: Heavy Past Drug Use History: Marijuana General Exam Limitations: no limitations General appearance: alert, in no apparent distress, anxious Head exam: Present: atraumatic, normocephalic, normal inspection Eye exam: Present: normal appearance, PERRL, EOMI. Absent: scleral icterus, conjunctival injection, periorbital swelling ENT exam: Present: normal exam, mucous membranes moist Neck exam: Present: normal inspection. Absent: tenderness, meningismus, lymphadenopathy Respiratory exam: Present: normal lung sounds bilaterally. Absent: respiratory distress, wheezes, rales, rhonchi, stridor Cardiovascular Exam: Present: normal rhythm, tachycardia, normal heart sounds. Absent: systolic murmur, diastolic murmur, rubs, gallop, clicks GI/Abdominal exam: Present: soft, normal bowel sounds. Absent: distended, tenderness, guarding, rebound, rigid Extremities exam: Present: normal inspection, full ROM, normal capillary refill. Absent: tenderness, pedal edema, joint swelling, calf tenderness Back exam: Present: normal inspection Neurological exam: Present: alert, oriented X3, CN II-XII intact Psychiatric exam: Present: normal affect, normal mood Skin exam: Present: warm, dry, intact, normal color. Absent: rash Course Vital Signs 08/15/21 08/15/21 02:36 03:50 Temperature 98.5 F 98.0 F Pulse Rate 111 H 89 Respiratory 24 18 Rate Blood Pressure 193/101 121/56 O2 Sat by Pulse 99 99 Oximetry - Reevaluation(s) Reevaluation #1: 08/15/21 Medical record is reviewed Reevaluation #2: 08/15/21 Patient symptoms improved here in the ER Reevaluation #3: 08/15/21 Patient informed of results and questions answered Medical Decision Making - Medical Decision Making 51 male to the emergency department for evaluation of bilateral lower extremity numbness and tingling. Bilateral leg paresthesias. Patient given treatment and can be discharged home Disposition Clinical Impression: Bilateral leg paresthesia Disposition: HOME SELF-CARE Condition: Good Instructions (If sedation given, give patient instructions): Paresthesia (ED) Prescriptions: Cyclobenzaprine [Flexeril] 10 mg PO HS #30 tab Is patient prescribed a controlled substance at d/c from ED?: No Referrals: Jonh Frey MD [Primary Care Provider] - 1-2 days
[2021-08-15 04:18] VITALS: BP 121/56; PULSE 89; RESP 18; TEMP 98
== END 2021-08-15 03:50 | disposition home or self-care (01) ==
LOC: EC 02:35
DX: R20.2 Paresthesia of skin (principal); I10 Essential (primary) hypertension; Z88.8 Allergy status to other drugs, medicaments and biological substances
CPT/HCPCS: 99283

== ENCOUNTER 2021-09-22 13:08 | Inpatient (IN) | payer OTHER ==
--- NOTE | 2021-09-22 15:25 | XR ---
EXAMINATION TYPE: XR chest 2V DATE OF EXAM: 09/22/2021 COMPARISON: 05/19/2021 HISTORY: Shortness of breath TECHNIQUE: Frontal and lateral views of the chest are obtained. FINDINGS: Scattered senescent parenchymal changes noted. Hyperinflation compatible with COPD. No evidence for infiltrate. Right basilar linear atelectasis noted. Heart size is stable. Mediastinal structures are stable and grossly unremarkable. No evidence for hilar prominence. Degenerative changes dorsal spine. IMPRESSION: 1. No evidence for acute pulmonary disease.
[2021-09-22] MEDS ORDERED: IOPAMIDOL CONTRAST (ORAL USE) VIAL PO PRN (17:32)
[2021-09-22] MEDS ORDERED: ALBUTEROL HFA INHALER INHALATION PRN (17:33)
--- NOTE | 2021-09-22 18:35 | ED ---
Weakness HPI - General Chief complaint: Weakness Stated complaint: Liver check,weakness Time Seen by Provider: 09/22/21 14:04 Source: patient Mode of arrival: wheelchair Limitations: no limitations - History of Present Illness Initial comments: Patient complains of generalized weakness. Nothing makes his symptoms better or worse. He states that his belly is distended. It is not usually like this. He also complains of yellow discoloration of the eyes and face and arms. He has no back pain. He has a fevers or chills. He has no confusion. He has no focal deficits. He is eating and drinking. - Related Data Home Medications Medication Instructions Recorded Confirmed Aspirin EC [Ecotrin Low Dose] 81 mg PO DAILY 05/08/21 09/22/21 Albuterol Inhaler [Ventolin Hfa 2 puff INHALATION RT-QID PRN 09/22/21 09/22/21 Inhaler] Budesonide/Formoterol Fumarate 2 puff INHALATION RT-BID 09/22/21 09/22/21 [Symbicort 160-4.5 Mcg Inhaler] Ergocalciferol (Vitamin D2) 1,250 mcg PO Q7D 09/22/21 09/22/21 [Drisdol (50,000 Iu)] Furosemide [Lasix] 20 mg PO DAILY 09/22/21 09/22/21 Labetalol HCl [Trandate] 300 mg PO DAILY 09/22/21 09/22/21 Loperamide HCl [Imodium A-D] 2 - 4 mg PO QID PRN 09/22/21 09/22/21 cloNIDine HCL [Catapres] 0.3 mg PO TID 09/22/21 09/22/21 lisinopriL [Zestril] 20 mg PO DAILY 09/22/21 09/22/21 Previous Rx's Medication Instructions Recorded Doxazosin [Cardura] 4 mg PO DAILY #30 tab 05/10/21 Cyclobenzaprine [Flexeril] 10 mg PO HS #30 tab 08/15/21 Allergies Allergy/AdvReac Type Severity Reaction Status Date / Time hydralazine Allergy Unknown Verified 09/22/21 16:45 unknown b/p med AdvReac joint pain Uncoded 09/22/21 13:33 Review of Systems ROS Statement: Those systems with pertinent positive or pertinent negative responses have been documented in the HPI. ROS Other: All systems not noted in ROS Statement are negative. Past Medical History Past Medical History: Hypertension Additional Past Medical History / Comment(s): AAA to thorasis level History of Any Multi-Drug Resistant Organisms: None Reported Additional Past Surgical History / Comment(s): AAA repair - 7 years ago at [facility] Past Anesthesia/Blood Transfusion Reactions: No Reported Reaction Past Psychological History: No Psychological Hx Reported Smoking Status: Never smoker Past Alcohol Use History: Abuse, Daily, Heavy Past Drug Use History: None Reported General Exam Limitations: no limitations General appearance: alert, in no apparent distress Head exam: Present: atraumatic, normocephalic, normal inspection Eye exam: Present: normal appearance, PERRL, EOMI, scleral icterus. Absent: periorbital swelling ENT exam: Present: normal exam, mucous membranes moist Neck exam: Present: normal inspection. Absent: tenderness, meningismus, lympha denopathy Respiratory exam: Present: normal lung sounds bilaterally. Absent: respiratory distress, wheezes, rales, rhonchi, stridor Cardiovascular Exam: Present: regular rate, normal rhythm, normal heart sounds. Absent: systolic murmur, diastolic murmur, rubs, gallop, clicks GI/Abdominal exam: Present: distended, normal bowel sounds. Absent: tenderness, guarding, rebound, rigid Extremities exam: Present: normal inspection, full ROM, normal capillary refill. Absent: tenderness, pedal edema, joint swelling, calf tenderness Back exam: Present: normal inspection Neurological exam: Present: alert, oriented X3, CN II-XII intact Psychiatric exam: Present: normal affect, normal mood Skin exam: Present: warm, dry, intact, other (Positive or jaundice) Course Vital Signs 09/22/21 13:29 Temperature 98.2 F Pulse Rate 116 H Respiratory 15 Rate Blood Pressure 132/77 O2 Sat by Pulse 98 Oximetry EKG Findings - EKG Comments: EKG Findings:: Twelve-lead EKG shows ventricular rate 111 bpm, normal OK interval and QRS complexes, no ST elevation or depression, interpreted by me as sinus tachycardia. Medical Decision Making - Medical Decision Making Patient presents with jaundice and abdominal distention. He appears to have significant liver disease. He will be admitted to the hospital. Disposition Clinical Impression: Jaundice Disposition: ADMITTED IP TO THIS HOSP Condition: Fair Is patient prescribed a controlled substance at d/c from ED?: No Referrals: Jonh Frey MD [Primary Care Provider] - 1-2 days
[2021-09-22] MEDS ORDERED: TEMAZEPAM 15 MG CAP PO PRN (18:37)
[2021-09-22] MEDS ORDERED: ONDANSETRON 4 MG/2 ML VIAL IVP PRN (18:37)
[2021-09-22] MEDS ORDERED: NALOXONE 0.4 MG/ML 1 ML VIAL IV PRN (18:37)
[2021-09-22] MEDS ORDERED: ALPRAZolam 0.25 MG TAB PO PRN (18:37)
[2021-09-22] MEDS ORDERED: MORPHINE SULFATE 4 MG/ML SYRINGE IVP PRN (18:37)
--- NOTE | 2021-09-22 18:50 | HP ---
HISTORY AND PHYSICAL CHIEF COMPLAINTS: Weakness, abdominal distention, jaundice. HISTORY OF PRESENT ILLNESS: This 51-year-old gentleman with a past medical history of significant alcoholism, hypertension, abdominal aortic aneurysm dissection, rather chronic, being followed by Dr. Frey in the outpatient setting, apparently had a history of heavy drinking. The patient was last night. Today the patient had weakness of both legs, now some numbness, abdominal distention, jaundice. The patient came to [facility]. Initial labs are pending at this time. The patient had most likely ascites and cirrhosis of the liver also. There is no history of any fever, rigor or chills at this time. PAST MEDICAL HISTORY: Hypertension, history of abdominal aortic aneurysm dissection. HOME MEDICATIONS: Reviewed and include Lasix, vitamin D2. Doses and other medications are reviewed. ALLERGIES: HYDRALAZINE. FAMILY HISTORY: No history of heart disease or strokes in the family. SOCIAL HISTORY: History of heavy alcohol as mentioned earlier. History of THC. REVIEW OF SYSTEMS: Fourteen-point review of systems negative except as mentioned earlier. PHYSICAL EXAMINATION: Pulse is 116, blood pressure 132/77, respiration 15. HEENT: Conjunctivae icteric. Oral mucosa icteric. NECK: No jugular venous distention. CARDIOVASCULAR: S1, S2 muffled. RESPIRATION: Breath sounds diminished at the bases. A few scattered rhonchi. ABDOMEN: Diffusely distended. Tense. Possible ascites. LEGS: Bilateral leg edema. Sensation diminished. SKIN: No ulcer. JOINTS: No active deforming arthropathy. NERVOUS SYSTEM: Possible peripheral neuropathy, bilateral lower legs. LABS: Awaited. ASSESSMENT: 1. Acute hepatic failure secondary to possibly alcoholic hepatitis and cirrhosis of the liver. 2. Possible peripheral neuropathy. 3. Gait dysfunction. 4. History of ETOH. 5. History of chronic abdominal aortic dissection. 6. Obesity. RECOMMENDATIONS AND DISCUSSION: In this 51-year-old gentleman who presented with multiple complex medical issues, we will monitor the patient closely. Otherwise I would recommend basic labs, gastroenterology evaluation. I would also recommend a CT scan of the abdomen and pelvis as well as [facility] protocol. Alcohol withdrawal precautions. Recommended alcohol cessation and possible rehab. See orders for further details. Overall prognosis guarded. Discussed with the patient at length. Further recommendations to follow. MMODL / IJN: [id number] / [facility] HOSPITALBrendan
--- NOTE | 2021-09-22 19:50 | CT ---
EXAMINATION TYPE: CT abdomen pelvis wo con DATE OF EXAM: 09/22/2021 COMPARISON: 05/19/2021 INDICATION: abdominal pain and distention DLP: 1504.4 mGycm, Automated exposure control for dose reduction was used. CONTRAST: 0 mL of Isovue 300. Study performed with Oral Contrast TECHNIQUE: Axial images were obtained from above the diaphragm to the pubic rami in the axial plane a t 5 mm thick sections. Reconstructed images are reviewed on the computer in the coronal plane. FINDINGS: Limited CT sections are obtained the lung bases. The lung bases are clear. CT ABDOMEN: Ascites is adjacent to the liver and spleen. Paracolic gutter fluid is present bilaterally more so on the left. Some mesenteric fluid is present. Liver: There is moderate fatty infiltration throughout the liver. Spleen: Normal Pancreas: Normal Adrenal glands: The adrenal glands are normal. Gallbladder: Multiple gallstones are present. Kidneys: No masses are evident. No hydronephrosis is present. No cysts are present. Delayed images were obtained through the kidneys, which remain unremarkable. Aorta: Vascular calcification is within the aorta. There is a hint of some vascular calcification tr ansversing the aorta suggesting underlying dissection may be present. Example image series 201 image 55. There is an abdominal aortic aneurysm measuring 4.1 cm AP dimension. Some prominence of the commo n iliac vessels are present bilaterally more so on the left. Inferior vena cava: Normal. CT PELVIS: The hepatic flexure has thickened wall. Transverse colon and descending colon appear normal. There ar e loops of bowel which are incompletely distended or lack oral contrast limiting their evaluation. So mewhat prominent jejunum is present. Appendix: Some fluid is adjacent to the appendix in the paracolic gutter. The appendix diameter is so mewhat prominent measuring 1.3 cm. Clinical correlation for acute appendicitis is recommended. Urinary bladder: Normal. Genitourinary structures: Prostate is normal Osseous structures: No suspicious lytic or sclerotic lesions. IMPRESSIONS: 1. Ascites. 2. The appendix is somewhat dilated at 1.3 cm. Normal 0.7 cm. Correlate for acute appendicitis. 3. Thickened hepatic flexure. Correlate for colitis at this level. 4. Abdominal aortic aneurysm of 4.1 cm. A dissection appears to be present which is similar to the co mparison 2020. 5. Moderate diffuse fatty infiltration liver.
[2021-09-22] MEDS: SYMBICORT 160-4.5 MCG INHALER INHALATION SCH (21:17)
[2021-09-23] MEDS: cloNIDine HCL 0.1 MG TAB PO SCH ×5 (00:58→22:21)
[2021-09-23] MEDS: CYCLOBENZAPRINE 10 MG TAB PO SCH ×2 (01:05→20:17)
[2021-09-23 03:52] LABS: Amorphous Sediment,Urine Few /hpf; Appearance,Urine Cloudy (Clear); Bacteria,Urine Few /hpf; Bilirubin,Urine 4+ (Negative); Blood,Urine Trace (Negative); Color,Urine Dark Brown; Glucose,Urine (UA) Negative (Negative); Hyaline Casts,Urine 23 /lpf (0-2); Ketones,Urine Negative (Negative); Leukocyte Esterase,Urine Negative (Negative); Mucus,Urine Occasional /hpf; Nitrite,Urine Negative (Negative); Protein,Urine Trace (Negative); Specific Gravity,Urine 1.012 (1.001-1.035); Squamous Epithelial Cell,Urine 2 /hpf (0-4); Urobilinogen,Urine <2.0 mg/dL (<2.0); WBC,Urine 19 /hpf (0-5)
[2021-09-23 04:31] LABS: Anisocytosis Slight; Basophils % (A) 0 %; Eosinophils % (A) 0 %; HCT 39.1 % (39.0-53.0); HGB 12.9 gm/dL (13.0-17.5); Lymphocytes # (A) 0.4 k/uL (1.0-4.8); Lymphocytes % (A) 4 %; MCH 38.8 pg (25.0-35.0); MCHC 33.1 g/dL (31.0-37.0); MCV 117.2 fL (80.0-100.0); Macrocytosis Marked; Mean Platelet Volume 10.2; Monocytes % (A) 10 %; Neutrophils # (A) 8.6 k/uL (1.3-7.7); Neutrophils % (A) 85 %; Platelet Count 89 k/uL (150-450); RBC 3.34 m/uL (4.30-5.90); RDW 17.7 % (11.5-15.5); WBC 10.1 k/uL (3.8-10.6)
[2021-09-23 04:47] LABS: Albumin 2.7 g/dL (3.5-5.0); Calcium 8.5 mg/dL (8.4-10.2); Magnesium 1.5 mg/dL (1.6-2.3); Phosphorus 5.2 mg/dL (2.5-4.5); Potassium 4.3 mmol/L (3.5-5.1)
[2021-09-23 05:11] LABS: Lactic Acid, Venous 10.2 mmol/L (0.7-2.0)
[2021-09-23 05:12] LABS: Total Bilirubin 28.2 mg/dL (0.2-1.3); Total Protein 7.1 g/dL (6.3-8.2)
[2021-09-23 05:15] LABS: INR 2.9 (<1.2); Prothrombin Time 28.6 sec (9.0-12.0)
[2021-09-23 05:53] LABS: Glucose,Whole Blood 40 mg/dL (75-99)
[2021-09-23] MEDS ORDERED: DEXTROSE 50% SYRINGE 50 ML IVP ONE (06:01)
[2021-09-23] MEDS ORDERED: DEXTROSE 50% SYRINGE 50 ML IVP STA (06:02)
[2021-09-23 06:23] LABS: Glucose,Whole Blood 101 mg/dL (75-99)
[2021-09-23 07:25] LABS: Glucose,Whole Blood 66 mg/dL (75-99)
[2021-09-23 07:57] LABS: Glucose,Whole Blood 80 mg/dL (75-99)
[2021-09-23 08:32] LABS: Glucose,Whole Blood 61 mg/dL (75-99)
[2021-09-23 08:48] LABS: Glucose,Whole Blood 62 mg/dL (75-99)
[2021-09-23] MEDS ORDERED: Magnesium Replacement Protocol 1 EACH MISC MISCELLANE PRN (08:49)
[2021-09-23] MEDS ORDERED: FUROSEMIDE 20 MG TAB PO SCH (09:00)
[2021-09-23] MEDS ORDERED: ASPIRIN 81 MG PO SCH (09:00)
[2021-09-23] MEDS ORDERED: lisinopriL 20 MG TAB PO SCH (09:00)
[2021-09-23 09:12] LABS: Glucose,Whole Blood 67 mg/dL (75-99)
[2021-09-23] MEDS ORDERED: LACTULOSE 20 GM/30 ML CUP PO ONE (09:22)
[2021-09-23 09:31] LABS: Glucose,Whole Blood 61 mg/dL (75-99)
[2021-09-23 09:52] LABS: Glucose,Whole Blood 63 mg/dL (75-99)
[2021-09-23] MEDS: MAGNESIUM SULFATE-D5W PMX 1 GM in DEXTROSE/WATER 1 100ML.BAG IVPB SCH ×2 (09:55→11:04)
[2021-09-23 10:03] LABS: Hepatitis A Antibody IgM Nonreactive (Nonreactive); Hepatitis B Core IgM Nonreactive (Nonreactive); Hepatitis B Surface Antigen Nonreactive (Nonreactive); Hepatitis C IgG Antibody Nonreactive (Nonreactive)
[2021-09-23 10:17] LABS: Glucose,Whole Blood 67 mg/dL (75-99)
[2021-09-23] MEDS: LABETALOL 100 MG TAB PO SCH (10:21)
[2021-09-23] MEDS: DOXAZOSIN 4 MG TAB PO SCH (10:21)
--- NOTE | 2021-09-23 10:29 | P.NPCON ---
History of Present Illness - Reason for Consult acute renal failure, hyponatremia - History of Present Illness Reason for consultation: Acute kidney injury and electrolyte imbalance History of present illness: Patient is a 51-year-old male seen in renal consultation for acute kidney injury and electrolyte imbalance. Patient presented to the hospital due to generalized weakness and states that his friends told him he looked yellow. Patient is not a very reliable historian at this time. He is noted to be in acute liver failure. Patient's AST and ALT are elevated and patient's ammonia level is 86. Patient's bilirubin is elevated at 28.2. He denies hematuria or dysuria. Patient states she last voided yesterday. Lactic acid was elevated at 11.9. He was started on IV fluids this morning. Patient does note that his abdomen is distended but is not able to tell me how much weight he has gained in the last week or even a month. He does admit to taking pain medication but is unsure of the names. He does have history of high blood pressure and takes lisinopril as part of the regimen which is currently held. He denies chest pain or shortness of breath. Patient's creatinine in April 2021 was 0.79 and is elevated at 1.77 this admission. He does admit to drinking two tall cans of beer on a daily basis for the last 10 years or so. Blood pressure stable. He denies any prior history of liver disease. Vital signs are stable. General: No acute distress. HEENT: Head exam is unremarkable. LUNGS: Breath sounds decreased. HEART: Rate and Rhythm are regular. ABDOMEN: Distention noted. EXTREMITITES: Trace edema. Past Medical History Past Medical History: Hypertension Additional Past Medical History / Comment(s): AAA History of Any Multi-Drug Resistant Organisms: None Reported Additional Past Surgical History / Comment(s): AAA repair - 7 years ago at [facility] Past Anesthesia/Blood Transfusion Reactions: No Reported Reaction Past Psychological History: No Psychological Hx Reported Smoking Status: Never smoker Past Alcohol Use History: Abuse, Daily, Heavy Past Drug Use History: None Reported Medications and Allergies Home Medications Medication Instructions Recorded Confirmed Type Aspirin EC [Ecotrin Low Dose] 81 mg PO DAILY 05/08/21 09/22/21 History Doxazosin [Cardura] 4 mg PO DAILY #30 tab 05/10/21 09/22/21 Rx Cyclobenzaprine [Flexeril] 10 mg PO HS #30 tab 08/15/21 09/22/21 Rx Albuterol Inhaler [Ventolin Hfa 2 puff INHALATION RT-QID PRN 09/22/21 09/22/21 History Inhaler] Budesonide/Formoterol Fumarate 2 puff INHALATION RT-BID 09/22/21 09/22/21 History [Symbicort 160-4.5 Mcg Inhaler] Ergocalciferol (Vitamin D2) 1,250 mcg PO Q7D 09/22/21 09/22/21 History [Drisdol (50,000 Iu)] Furosemide [Lasix] 20 mg PO DAILY 09/22/21 09/22/21 History Labetalol HCl [Trandate] 300 mg PO DAILY 09/22/21 09/22/21 History Loperamide HCl [Imodium A-D] 2 - 4 mg PO QID PRN 09/22/21 09/22/21 History cloNIDine HCL [Catapres] 0.3 mg PO TID 09/22/21 09/22/21 History lisinopriL [Zestril] 20 mg PO DAILY 09/22/21 09/22/21 History Allergies Allergy/AdvReac Type Severity Reaction Status Date / Time hydralazine Allergy Unknown Verified 09/22/21 16:45 unknown b/p med AdvReac joint pain Uncoded 09/22/21 13:33 Physical Exam Vitals: Vital Signs Temp Pulse Pulse Resp BP BP Pulse Ox 09/23/21 09:53 112 H 22 09/23/21 08:19 115 H 22 155/58 98 09/23/21 07:58 107 H 19 144/79 98 09/23/21 07:39 108 H 19 136/73 95 09/23/21 07:14 97.9 F 109 H 18 113/69 96 09/22/21 21:25 120 H 147/84 97 09/22/21 20:50 98 F 112 H 16 136/78 97 09/22/21 19:00 98.3 F 114 H 16 113/78 97 09/22/21 13:29 98.2 F 116 H 15 132/77 98 Intake and Output 09/22/21 09/23/21 09/23/21 22:59 06:59 14:59 Intake Total 650 Balance 650 Intake: Oral 650 Other: Voiding Method Urinal Incontinent # Voids 1 # Bowel Movements 0 Weight 115.666 kg Results - Lab Results Most recent lab results Calcium 8.5 mg/dL (8.4-10.2) 09/23/21 04:00 Phosphorus 5.2 mg/dL (2.5-4.5) H 09/23/21 04:00 Magnesium 1.5 mg/dL (1.6-2.3) L 09/23/21 04:00 09/23/21 04:00 09/23/21 04:00 Assessment and Plan Plan: Assessment: 1. Acute kidney injury mostly prerenal from poor intake. Also concern for pigment nephropathy due to elevated bilirubin as well as hepatorenal syndrome. Rule out urinary retention. No hydronephrosis noted on CAT scan. Creatinine in April 2021 was 0.79 and 1.77 today. 2. Metabolic acidosis secondary to acute kidney injury and lactic acidosis. 3. Acute liver failure with ascites. CAT scan shows fatty infiltration of the liver. GI consulted. 4. Hyponatremia. Hypervolemic and also component of excess fluid intake. 5. Hepatic encephalopathy. 6. Hypomagnesemia from poor intake. Being replaced. 7. Benign hypertension. Plan: Maintain normal saline. 1500 mL fluid resection. Low-salt diet. Repeat BMP at noon. Straight catheterization to make sure no urinary retention. Vo catheter will be placed if needed. Schedule for paracentesis. I will give him albumin pre-and post procedure. Hold lisinopril. Hold antihypertensives for systolic blood pressure less than 120. Avoid nephrotoxins. Will start diuretics later today pending labs. Thank you for the consultation. I will continue to follow the patient with you during his hospital stay.
[2021-09-23 10:38] LABS: Glucose,Whole Blood 132 mg/dL (75-99)
[2021-09-23] MEDS: PHYTONADIONE ORAL 5 MG/5 ML ORAL.SYRG PO SCH (11:18)
[2021-09-23 11:45] LABS: Glucose,Whole Blood 116 mg/dL (75-99)
[2021-09-23 12:02] LABS: African American GFR (CKD) 40 (>60 ml/min/1.73 sqM); Anion Gap 22 mmol/L; Blood Urea Nitrogen 4 mg/dL (9-20); Calcium 8.2 mg/dL (8.4-10.2); Carbon Dioxide 14 mmol/L (22-30); Chloride 89 mmol/L (98-107); Glucose 95 mg/dL (74-99); Non-African American GFR(CKD) 35 (>60 ml/min/1.73 sqM); Potassium 4.9 mmol/L (3.5-5.1); Sodium 125 mmol/L (137-145)
[2021-09-23] MEDS: SYMBICORT 160-4.5 MCG INHALER INHALATION SCH ×2 (12:07→19:38)
[2021-09-23 12:23] LABS: Albumin 2.6 g/dL (3.5-5.0); Albumin/Globulin Ratio 0.6; Alkaline Phosphatase 183 U/L (38-126); Globulin 4.4 g/dL
[2021-09-23 12:35] LABS: Anisocytosis Slight; Basophils % (A) 0 %; Eosinophils % (A) 0 %; HCT 40.8 % (39.0-53.0); Hypochromasia Slight; Lymphocytes # (A) 0.4 k/uL (1.0-4.8); Lymphocytes % (A) 5 %; MCH 39.3 pg (25.0-35.0); MCHC 31.8 g/dL (31.0-37.0); Macrocytosis Marked; Mean Platelet Volume 11.7; Monocytes # (A) 1.1 k/uL (0-1.0); Monocytes % (A) 14 %; Neutrophils # (A) 6.4 k/uL (1.3-7.7); Neutrophils % (A) 79 %; RDW 18.7 % (11.5-15.5); WBC 8.1 k/uL (3.8-10.6)
[2021-09-23 12:38] LABS: ALT 109 U/L (4-49)
[2021-09-23 12:39] LABS: AST 1310 U/L (17-59)
[2021-09-23 12:40] LABS: MCV 123.3 fL (80.0-100.0); Platelet Count 76 k/uL (150-450); Total Bilirubin 29.1 mg/dL (0.2-1.3)
[2021-09-23 13:26] LABS: INR 3.7 (<1.2); Prothrombin Time 36.6 sec (9.0-12.0)
[2021-09-23] MEDS ORDERED: FUROSEMIDE 10 MG/ML 10 ML VIAL IV STA (13:34)
[2021-09-23] MEDS ORDERED: SODIUM CHLORIDE 0.9% 500 ML 500 ML IV ONE ×2 (13:34→22:21)
--- NOTE | 2021-09-23 13:47 | PN ---
PROGRESS NOTE DATE OF SERVICE: 09/23/2021 This 51-year-old gentleman who was admitted with weakness, abdominal pain and jaundice has possible alcoholic hepatitis. Patient also had elevated ammonia. Patient has significant ascites also. The patient is severely jaundiced. Patient complains of weakness. Past medical history reviewed. Lactic acid is still elevated REVIEW OF SYSTEMS: Fourteen-point review of systems negative except as mentioned earlier. PHYSICAL EXAMINATION: GENERAL APPEARANCE: The patient is conscious but distressed. Significant abdominal distention present, massive. VITAL SIGNS: Pulse is 116, blood pressure 170/90, respiration 22. HEENT: Conjunctivae deeply icteric. Oral mucosa deeply icteric. NECK: No jugular venous distention. CARDIOVASCULAR: S1, S2 muffled. RESPIRATION: A few scattered rhonchi. ABDOMEN: Distended, tense. Significant ascites present. LEGS: Minimal edema. NERVOUS SYSTEM: Diffusely weak. Hepatic flap present. LABS: MCV 123.3, sodium 125 total. Bilirubin is 29.1. Lactic acid 13.4. AST is 1310. Rest of the labs are noted. ASSESSMENT: 1. Acute hepatic failure secondary to alcoholic hepatitis and cirrhosis of the liver. 2. Severe hyperbilirubinemia. 3. Possible peripheral neuropathy. 4. Ascites. 5. Gait dysfunction. 6. History of ETOH. 7. Hepatic encephalopathy. 8. History of chronic abdominal aortic dissection. 9. Obesity. RECOMMENDATIONS AND DISCUSSION: I recommend to continue current medications, continue with the monitoring, symptomatic treatment. Repeat labs. Continue lactulose. Monitor creatinine closely. Monitor ammonia closely. Monitor bilirubin closely. Continue to follow with multiple consultants. Prognosis extremely guarded. I would also recommend vitamin K and repeat PT/INR and possible ascitic tap and further studies. Empiric antibiotics. Obtain cultures. See orders for further details. Further recommendations to follow. MMODL / IJN: [id number] /
[2021-09-23 13:49] LABS: Glucose,Whole Blood 115 mg/dL (75-99)
--- NOTE | 2021-09-23 14:27 | P.GSCN ---
History of Present Illness Consult date: 09/23/21 History of present illness: CHIEF COMPLAINT: Jaundice HISTORY OF PRESENT ILLNESS: This is a 51-year-old male who presented to the hospital with generalized weakness and jaundice. Patient is a poor historian. He does have a history of daily alcohol abuse. Patient reports that he noticed that he was becoming more yellow. He cannot give a time frame of when his sympt oms started. Patient was found to have an elevated total bilirubin of 28. LFTs were elevated as well. Computed tomography scan of the abdomen was completed showing ascites. The appendix is somewhat dilated at 1.3 cm. Correlate for acute appendicitis. And incidental finding of multiple gallsto cristel. Surgical consult was placed and concerns for possible acute appendicitis. Patient denies any right lower quadrant abdominal pain. Denies any fever chills or sweats. Denies any nausea or vomiting. And has no evidence of leukocytosis. PAST MEDICAL HISTORY: See list. PAST SURGICAL HISTORY: See list. MEDICATIONS: See list. ALLERGIES: See list. SOCIAL HISTORY: No illicit drug use. REVIEW OF SYSTEMS: CONSTITUTIONAL: Denies fever or chills. HEENT: Denies blurred vision, vision changes, or eye pain. Denies hemoptysis ENDOCRINE: Denies heat or cold intolerance. CARDIOVASCULAR: Denies chest pain or pressure. RESPIRATORY: No shortness of breath. GASTROINTESTINAL: Denies abdominal pain. Denies nausea or vomiting. NEURO: Denies history of seizures. PSYCH: No depression or suicidal ideation HEMATOLOGIC: Denies bleeding disorders. LYMPHATIC: The patient denies any lumps and bumps around the neck. GENITOURINARY: Denies any blood in urine or increased urinary frequency. MUSCULOSKELETAL: Denies myalgias. Denies joint swelling. Denies decreased range of motion beyond patients baseline. SKIN: Denies pruitis. Denies rash. PHYSICAL EXAM: VITAL SIGNS: Reviewed GENERAL: Well-developed in no acute distress. HEENT: Scleral icterus bilaterally. Extraocular movements grossly intact. Moist buccal mucosa. Head is atraumatic, normocephalic. Hears conversational speech. No nasal drainage. NECK: Supple without lymphadenopathy. CHEST: Non-labored respirations and equal bilateral excursions. CARDIOVASCULAR: Palpable 2+ radial pulses. ABDOMEN: Distended. Nontender. No tenderness with palpation of the right lower quadrant or right upper quadrant. MUSCULOSKELETAL: No clubbing or cyanosis. NEUROLOGIC: No focal or lateralizing signs. Cranial nerves II through XII grossly intact. PSYCH: Appropriate affect. Alert and oriented to person, place and time. SKIN: Jaundiced LABORATORY DATA: WBC 8.1 hemoglobin 13 platelets 76 INR 3.7 Sodium 125 potassium 4.9 creatinine 2.15 Lactic acid is trending upwards at 13.4 Magnesium 1.5 AST 1310 ALT 109 alk phos 183 Hepatitis panel negative IMAGING: Shows ascites. The appendix is somewhat dilated at 1.3 cm. Correlate for acute appendicitis. Thickened hepatic flexure. Correlate for colitis. Abdominal aortic aneurysm of 4.1 cm. A dissection appears to be present which is similar to the comparison in 2020. Moderate to diffuse fatty infiltration of liver. Incidental finding of gallstones. ASSESSMENT: 1. Acute liver failure and hepatitis with ascites 2. Jaundice 3. Dilated appendix of 1.3 cm with no abdominal pain 4. Multiple gallstones. Asymptomatic 5. Acute kidney injury 6. Hyponatremia 7. Hypomagnesemia 8. Hypoglycemia 9. Daily alcohol use PLAN: -No surgical intervention planned. Patient has no evidence of acute appendicitis. -Patient does have incidental finding of multiple gallstones. They're asymptomatic. At this point we will observe -Agree with GI consult and workup for -Continue supportive care Thank you for this consultation Physician Raftsman note has been reviewed by physician. Signing provider agrees with the documented findings, assessment, and plan of care. REASON FOR CONSULTATION: HISTORY OF PRESENT ILLNESS: The patient is a 51 year old male who presented to the emergency room complaining of generalized weakness, new jaundice and abdominal distention over 1 week. He has history of abdominal aortic aneurysm status post repair. He has history of alcohol abuse. Additional diagnostic studies demonstrated possible appendix dilation. No reports of lower abdominal pain. General surgery is consulted for appendicitis PAST MEDICAL HISTORY: See list and reviewed PAST SURGICAL HISTORY: See list and reviewed MEDICATIONS: See list and reviewed ALLERGIES: See list and reviewed SOCIAL HISTORY: See list and reviewed FAMILY HISTORY: See list and reviewed REVIEW OF ORGAN SYSTEMS: CONSTITUTIONAL: No fevers or chills. No recent weight loss. Has morbid obesity, BMI 39.9. EYES: Denies any trouble with vision. No glasses. HEENT: No difficulties with hearing. No nosebleeds. No difficulty swallowing. RESPIRATORY: Denies pneumonia. Denies any troubles with breathing or dyspnea on exertion. Has asthma. CARDIOVASCULAR: Denies any chest pain, palpitations, or recent heart attacks. Has hypertension. GASTROINTESTINAL: Denies fatty food intolerance. Denies change in bowel habits and gas bloat. New jaundice. GENITOURINARY: Denies any blood in urine or increased urinary frequency. NEUROLOGICAL: Denies any numbness or tingling along the distal extremities. No seizure disorders or headaches. MUSCULOSKELETAL: Denies any back pain, stiffness or joint arthritis. SKIN: No current skin cancer. No rash. PSYCHIATRIC: Denies current depression or suicidal thoughts. ENDOCRINE: Denies current thyroid disorders. Denies any blood sugar glucose intolerance. HEME/LYMPHATIC: Denies any lumps and bumps around the neck. No recent deep ve nous thrombosis. ALLERGY/IMMUNOLOGY: No immunoglobulin therapy. No immune deficiencies. BREAST: Denies current breast lumps, pain or nipple discharge. PHYSICAL EXAM: VITALS: Reviewed CONSTITUTIONAL: Well developed and in no acute distress. EYES: Conjuctivae with sclera icterus. Extraocular movements grossly intact. HEAD, EARS, NOSE, THROAT: Moist buccal mucosa. Head is atraumatic, normoceph alic. Hears conversational speech. No nasal drainage. NECK: Supple. No thyroidomegaly. RESPIRATORY: Non-labored respirations and equal bilateral excursions. No gross wheezes. CARDIOVASCULAR: Palpable 2+ radial pulses. ABDOMEN: Has abdominal distention. No peritonitis. Has ascites. LYMPH: No neck lymphadenopathy. MUSCULOSKELETAL: Nail and fingers with good capillary refill. SKIN: Well perfused with good skin turgor. Has jaundice. NEUROLOGIC: Cranial nerves II through XII grossly intact. Lethargic. PSYCH: Oriented to person. Flat affect. CLINCAL LABS: Reviewed. WBC normal at 10.1 on admission. Hgb 12.9. INR elevated 2.9. BSG 40, low. Lactic acid elevated 10.0. Hepatitis serology negative. LFTs AST 649, ALT 66, total bilirubin 28.2 IMAGING: Independently reviewed CT of the abdomen and pelvis reviewed with ascites, gallstones. No bowel obstruction. Appendix with air and patent. This is my independent interpretation. RADIOLOGY: Report reviewed of CT of the abdomen and pelvis with fatty liver infiltration, ascites, gallstones, AAA of 4.1 cm. Appendix dilated at 1.3 cm. Possible colitis of hepatic flexure. EKG: Reviewed. Sinus tachycardia ASSESSMENT: 1. Jaundice 2. Liver failure, acute 3. History of heavy alcohol abuse 4. Gallstones 5. Coagulopathy due to liver failure 6. AAA 7. Hypertensive heart disease 8. Morbid obesity due to excess calories, BMI 39.9 9. Hypoglycemia 10. Lactic acidosis PLAN: 1. Recommend GI consultation for acute hepatic failure 2. CT of the abdomen reviewed with patent appendix including clinically he has no right lower quadrant abdominal pain and no leukocytosis. No clinical findings of appendicitis. 3. He has gallstones in the setting of acute liver failure. Conservative management for now. No acute surgical intervention for asymptomatic gallstones. 4. IV fluid hydration for lactic acidosis ADVANCE DIRECTIVE: Thank you for this kind consultation. Past Medical History Past Medical History: Hypertension Additional Past Medical History / Comment(s): AAA History of Any Multi-Drug Resistant Organisms: None Reported Additional Past Surgical History / Comment(s): AAA repair - 7 years ago at [facility] Past Anesthesia/Blood Transfusion Reactions: No Reported Reaction Past Psychological History: No Psychological Hx Reported Smoking Status: Never smoker Past Alcohol Use History: Abuse, Daily, Heavy Past Drug Use History: None Reported Medications and Allergies Home Medications Medication Instructions Recorded Confirmed Type Aspirin EC [Ecotrin Low Dose] 81 mg PO DAILY 05/08/21 09/22/21 History Doxazosin [Cardura] 4 mg PO DAILY #30 tab 05/10/21 09/22/21 Rx Cyclobenzaprine [Flexeril] 10 mg PO HS #30 tab 08/15/21 09/22/21 Rx Albuterol Inhaler [Ventolin Hfa 2 puff INHALATION RT-QID PRN 09/22/21 09/22/21 History Inhaler] Budesonide/Formoterol Fumarate 2 puff INHALATION RT-BID 09/22/21 09/22/21 History [Symbicort 160-4.5 Mcg Inhaler] Ergocalciferol (Vitamin D2) 1,250 mcg PO Q7D 09/22/21 09/22/21 History [Drisdol (50,000 Iu)] Furosemide [Lasix] 20 mg PO DAILY 09/22/21 09/22/21 History Labetalol HCl [Trandate] 300 mg PO DAILY 09/22/21 09/22/21 History Loperamide HCl [Imodium A-D] 2 - 4 mg PO QID PRN 09/22/21 09/22/21 History cloNIDine HCL [Catapres] 0.3 mg PO TID 09/22/21 09/22/21 History lisinopriL [Zestril] 20 mg PO DAILY 09/22/21 09/22/21 History Allergies Allergy/AdvReac Type Severity Reaction Status Date / Time hydralazine Allergy Unknown Verified 09/22/21 16:45 unknown b/p med AdvReac joint pain Uncoded 09/22/21 13:33 Surgical - Exam Vital Signs Temp Pulse Resp BP Pulse Ox 98.2 F 116 H 15 132/77 98 09/22/21 13:29 09/22/21 13:29 09/22/21 13:29 09/22/21 13:29 09/22/21 13:29 Results - Labs 09/23/21 10:58 09/23/21 10:58 Abnormal Lab Results - Last 24 Hours (Table) 09/23/21 09/23/21 09/23/21 Range/Units 03:15 04:00 04:00 RBC 3.34 L (4.30-5.90) m/uL Hgb 12.9 L (13.0-17.5) gm/dL MCV 117.2 H (80.0-100.0) fL MCH 38.8 H (25.0-35.0) pg RDW 17.7 H (11.5-15.5) % Plt Count 89 L (150-450) k/uL Neutrophils # 8.6 H (1.3-7.7) k/uL Lymphocytes # 0.4 L (1.0-4.8) k/uL Macrocytosis Marked A PT 28.6 H (9.0-12.0) sec INR 2.9 H (<1.2) APTT 69.0 H (22.0-30.0) sec Sodium (137-145) mmol/L Chloride (98-107) mmol/L Carbon Dioxide (22-30) mmol/L BUN (9-20) mg/dL Creatinine (0.66-1.25) mg/dL Glucose (74-99) mg/dL POC Glucose (mg/dL) (75-99) mg/dL Plasma Lactic Acid Vinh (0.7-2.0) mmol/L Phosphorus (2.5-4.5) mg/dL Magnesium (1.6-2.3) mg/dL Total Bilirubin (0.2-1.3) mg/dL AST (17-59) U/L ALT (4-49) U/L Alkaline Phosphatase (38-126) U/L Ammonia (<30) umol/L Albumin (3.5-5.0) g/dL Urine Protein Trace H (Negative) Urine Blood Trace H (Negative) Urine Bilirubin 4+ H (Negative) Urine WBC 19 H (0-5) /hpf Amorphous Sediment Few H (None) /hpf Urine Bacteria Few H (None) /hpf Hyaline Casts 23 H (0-2) /lpf Urine Mucus Occasional H (None) /hpf 09/23/21 09/23/21 09/23/21 Range/Units 04:00 04:00 05:51 RBC (4.30-5.90) m/uL Hgb (13.0-17.5) gm/dL MCV (80.0-100.0) fL MCH (25.0-35.0) pg RDW (11.5-15.5) % Plt Count (150-450) k/uL Neutrophils # (1.3-7.7) k/uL Lymphocytes # (1.0-4.8) k/uL Macrocytosis PT (9.0-12.0) sec INR (<1.2) APTT (22.0-30.0) sec Sodium 127 L (137-145) mmol/L Chloride 90 L (98-107) mmol/L Carbon Dioxide 18 L (22-30) mmol/L BUN 3 L (9-20) mg/dL Creatinine 1.77 H (0.66-1.25) mg/dL Glucose 37 L* (74-99) mg/dL POC Glucose (mg/dL) 40 L (75-99) mg/dL Plasma Lactic Acid Vinh 10.2 H* (0.7-2.0) mmol/L Phosphorus 5.2 H (2.5-4.5) mg/dL Magnesium 1.5 L (1.6-2.3) mg/dL Total Bilirubin 28.2 H* (0.2-1.3) mg/dL AST 649 H (17-59) U/L ALT 66 H (4-49) U/L Alkaline Phosphatase 207 H (38-126) U/L Ammonia 86 H (<30) umol/L Albumin 2.7 L (3.5-5.0) g/dL Urine Protein (Negative) Urine Blood (Negative) Urine Bilirubin (Negative) Urine WBC (0-5) /hpf Amorphous Sediment (None) /hpf Urine Bacteria (None) /hpf Hyaline Casts (0-2) /lpf Urine Mucus (None) /hpf 09/23/21 09/23/21 09/23/21 Range/Units 06:21 07:19 07:23 RBC (4.30-5.90) m/uL Hgb (13.0-17.5) gm/dL MCV (80.0-100.0) fL MCH (25.0-35.0) pg RDW (11.5-15.5) % Plt Count (150-450) k/uL Neutrophils # (1.3-7.7) k/uL Lymphocytes # (1.0-4.8) k/uL Macrocytosis PT (9.0-12.0) sec INR (<1.2) APTT (22.0-30.0) sec Sodium (137-145) mmol/L Chloride (98-107) mmol/L Carbon Dioxide (22-30) mmol/L BUN (9-20) mg/dL Creatinine (0.66-1.25) mg/dL Glucose (74-99) mg/dL POC Glucose (mg/dL) 101 H 66 L (75-99) mg/dL Plasma Lactic Acid Vinh 11.9 H* (0.7-2.0) mmol/L Phosphorus (2.5-4.5) mg/dL Magnesium (1.6-2.3) mg/dL Total Bilirubin (0.2-1.3) mg/dL AST (17-59) U/L ALT (4-49) U/L Alkaline Phosphatase (38-126) U/L Ammonia (<30) umol/L Albumin (3.5-5.0) g/dL Urine Protein (Negative) Urine Blood (Negative) Urine Bilirubin (Negative) Urine WBC (0-5) /hpf Amorphous Sediment (None) /hpf Urine Bacteria (None) /hpf Hyaline Casts (0-2) /lpf Urine Mucus (None) /hpf 09/23/21 09/23/21 09/23/21 Range/Units 08:31 08:46 09:10 RBC (4.30-5.90) m/uL Hgb (13.0-17.5) gm/dL MCV (80.0-100.0) fL MCH (25.0-35.0) pg RDW (11.5-15.5) % Plt Count (150-450) k/uL Neutrophils # (1.3-7.7) k/uL Lymphocytes # (1.0-4.8) k/uL Macrocytosis PT (9.0-12.0) sec INR (<1.2) APTT (22.0-30.0) sec Sodium (137-145) mmol/L Chloride (98-107) mmol/L Carbon Dioxide (22-30) mmol/L BUN (9-20) mg/dL Creatinine (0.66-1.25) mg/dL Glucose (74-99) mg/dL POC Glucose (mg/dL) 61 L 62 L 67 L (75-99) mg/dL Plasma Lactic Acid Vinh (0.7-2.0) mmol/L Phosphorus (2.5-4.5) mg/dL Magnesium (1.6-2.3) mg/dL Total Bilirubin (0.2-1.3) mg/dL AST (17-59) U/L ALT (4-49) U/L Alkaline Phosphatase (38-126) U/L Ammonia (<30) umol/L Albumin (3.5-5.0) g/dL Urine Protein (Negative) Urine Blood (Negative) Urine Bilirubin (Negative) Urine WBC (0-5) /hpf Amorphous Sediment (None) /hpf Urine Bacteria (None) /hpf Hyaline Casts (0-2) /lpf Urine Mucus (None) /hpf 09/23/21 09/23/21 09/23/21 Range/Units 09:30 09:51 10:14 RBC (4.30-5.90) m/uL Hgb (13.0-17.5) gm/dL MCV (80.0-100.0) fL MCH (25.0-35.0) pg RDW (11.5-15.5) % Plt Count (150-450) k/uL Neutrophils # (1.3-7.7) k/uL Lymphocytes # (1.0-4.8) k/uL Macrocytosis PT (9.0-12.0) sec INR (<1.2) APTT (22.0-30.0) sec Sodium (137-145) mmol/L Chloride (98-107) mmol/L Carbon Dioxide (22-30) mmol/L BUN (9-20) mg/dL Creatinine (0.66-1.25) mg/dL Glucose (74-99) mg/dL POC Glucose (mg/dL) 61 L 63 L 67 L (75-99) mg/dL Plasma Lactic Acid Vinh (0.7-2.0) mmol/L Phosphorus (2.5-4.5) mg/dL Magnesium (1.6-2.3) mg/dL Total Bilirubin (0.2-1.3) mg/dL AST (17-59) U/L ALT (4-49) U/L Alkaline Phosphatase (38-126) U/L Ammonia (<30) umol/L Albumin (3.5-5.0) g/dL Urine Protein (Negative) Urine Blood (Negative) Urine Bilirubin (Negative) Urine WBC (0-5) /hpf Amorphous Sediment (None) /hpf Urine Bacteria (None) /hpf Hyaline Casts (0-2) /lpf Urine Mucus (None) /hpf /10/10 Range/Units 10:34 RBC (4.30-5.90) m/uL Hgb (13.0-17.5) gm/dL MCV (80.0-100.0) fL MCH (25.0-35.0) pg RDW (11.5-15.5) % Plt Count (150-450) k/uL Neutrophils # (1.3-7.7) k/uL Lymphocytes # (1.0-4.8) k/uL Macrocytosis PT (9.0-12.0) sec INR (<1.2) APTT (22.0-30.0) sec Sodium (137-145) mmol/L Chloride (98-107) mmol/L Carbon Dioxide (22-30) mmol/L BUN (9-20) mg/dL Creatinine (0.66-1.25) mg/dL Glucose (74-99) mg/dL POC Glucose (mg/dL) 132 H (75-99) mg/dL Plasma Lactic Acid Vinh (0.7-2.0) mmol/L Phosphorus (2.5-4.5) mg/dL Magnesium (1.6-2.3) mg/dL Total Bilirubin (0.2-1.3) mg/dL AST (17-59) U/L ALT (4-49) U/L Alkaline Phosphatase (38-126) U/L Ammonia (<30) umol/L Albumin (3.5-5.0) g/dL Urine Protein (Negative) Urine Blood (Negative) Urine Bilirubin (Negative) Urine WBC (0-5) /hpf Amorphous Sediment (None) /hpf Urine Bacteria (None) /hpf Hyaline Casts (0-2) /lpf Urine Mucus (None) /hpf Diabetes panel 09/23/21 Range/Units 04:00 Sodium 127 L (137-145) mmol/L Potassium 4.3 (3.5-5.1) mmol/L Chloride 90 L (98-107) mmol/L Carbon Dioxide 18 L (22-30) mmol/L BUN 3 L (9-20) mg/dL Creatinine 1.77 H (0.66-1.25) mg/dL Glucose 37 L* (74-99) mg/dL Calcium 8.5 (8.4-10.2) mg/dL AST 649 H (17-59) U/L ALT 66 H (4-49) U/L Alkaline Phosphatase 207 H (38-126) U/L Total Protein 7.1 (6.3-8.2) g/dL Albumin 2.7 L (3.5-5.0) g/dL Calcium panel 09/23/21 Range/Units 04:00 Calcium 8.5 (8.4-10.2) mg/dL Phosphorus 5.2 H (2.5-4.5) mg/dL Albumin 2.7 L (3.5-5.0) g/dL Pituitary panel 09/23/21 Range/Units 04:00 Sodium 127 L (137-145) mmol/L Potassium 4.3 (3.5-5.1) mmol/L Chloride 90 L (98-107) mmol/L Carbon Dioxide 18 L (22-30) mmol/L BUN 3 L (9-20) mg/dL Creatinine 1.77 H (0.66-1.25) mg/dL Glucose 37 L* (74-99) mg/dL Calcium 8.5 (8.4-10.2) mg/dL Adrenal panel 09/23/21 Range/Units 04:00 Sodium 127 L (137-145) mmol/L Potassium 4.3 (3.5-5.1) mmol/L Chloride 90 L (98-107) mmol/L Carbon Dioxide 18 L (22-30) mmol/L BUN 3 L (9-20) mg/dL Creatinine 1.77 H (0.66-1.25) mg/dL Glucose 37 L* (74-99) mg/dL Calcium 8.5 (8.4-10.2) mg/dL Total Bilirubin 28.2 H* (0.2-1.3) mg/dL AST 649 H (17-59) U/L ALT 66 H (4-49) U/L Alkaline Phosphatase 207 H (38-126) U/L Total Protein 7.1 (6.3-8.2) g/dL Albumin 2.7 L (3.5-5.0) g/dL
--- NOTE | 2021-09-23 14:41 | P.CNPUL ---
History of Present Illness Consult date: 09/23/21 Requesting physician: Cong Echevarria Reason for consult: other (ICU management) Chief complaint: Weakness, and abdominal distention History of present illness: This is a 51-year-old white male with history of alcoholism, chronic dissection of abdominal aortic aneurysm, history of hypertension, patient was brought in yesterday with multiple complaints including abdominal distention, weakness in t he legs, and turning kilo/jaundice. Patient was evaluated in the ER, and he was found to have significant abnormal labs, and significant ascites/anasarca. Patient was also found to have significant abnormal liver enzymes, elevated INR of 3.7, hyponatremia with a sodium of 125, anion gap metabolic acidosis with bicarb of 14, elevated lactic acid, and acute kidney injury with a creatinine of 2.15. Patient was also noted to be jaundiced, his total bilirubin was 29.1. AST was 1310 ALT 109 and alkaline phosphatase 183. Obviously the patient has multiple organ failure, and he is yet to undergo a paracentesis by interventional radiology, considering his complex medical issues, I was asked to see him and possibly transferred to the ICU. I did arrange for the patient to transfer to the ICU, will start the patient on antibiotics for his ascites. Will recommend GI evaluation, and he is also being seen by nephrology. Patient is not a great historian but he was told by family members that he is turning yellow only a few days ago. Patient has been complaining of increased abdominal girth for the last a few weeks, and has been generally weak and feeling numb in his lower extremities. Denies any cough denies any fever no chills, denies any shortness of breath. CT of the abdomen and pelvis clearly showed ascites, and it also showed appendix to be somewhat dilated the radiologist raised the possibility of acute appendicitis. There was evidence of moderate diffuse fatty infiltration of the liver there was also evidence of abdominal aortic aneurysm with dissection the same compared to previous CT of the abdomen back in 2020. Obviously the patient has chronic aortic dissection. Review of Systems Constitutional: Weakness fatigue malaise and more weakness in the lower extremities. HEENT: Patient describes turning yellow and jaundiced over the last few days. Pulmonary: Negative Cardiac: Negative GI: As noted in HPI Genitourinary: Negative Musculoskeletal: Weakness Psychiatric: Negative Hematologic: Negative Endocrine: Negative Musculoskeletal: Weakness Psychiatric: Negative Neurologic: Negative Past Medical History Past Medical History: Hypertension Additional Past Medical History / Comment(s): AAA History of Any Multi-Drug Resistant Organisms: None Reported Additional Past Surgical History / Comment(s): AAA repair - 7 years ago at [facility] Past Anesthesia/Blood Transfusion Reactions: No Reported Reaction Past Psychological History: No Psychological Hx Reported Smoking Status: Never smoker Past Alcohol Use History: Abuse, Daily, Heavy Past Drug Use History: None Reported Medications and Allergies Home Medications Medication Instructions Recorded Confirmed Type Aspirin EC [Ecotrin Low Dose] 81 mg PO DAILY 05/08/21 09/22/21 History Doxazosin [Cardura] 4 mg PO DAILY #30 tab 05/10/21 09/22/21 Rx Cyclobenzaprine [Flexeril] 10 mg PO HS #30 tab 08/15/21 09/22/21 Rx Albuterol Inhaler [Ventolin Hfa 2 puff INHALATION RT-QID PRN 09/22/21 09/22/21 History Inhaler] Budesonide/Formoterol Fumarate 2 puff INHALATION RT-BID 09/22/21 09/22/21 History [Symbicort 160-4.5 Mcg Inhaler] Ergocalciferol (Vitamin D2) 1,250 mcg PO Q7D 09/22/21 09/22/21 History [Drisdol (50,000 Iu)] Furosemide [Lasix] 20 mg PO DAILY 09/22/21 09/22/21 History Labetalol HCl [Trandate] 300 mg PO DAILY 09/22/21 09/22/21 History Loperamide HCl [Imodium A-D] 2 - 4 mg PO QID PRN 09/22/21 09/22/21 History cloNIDine HCL [Catapres] 0.3 mg PO TID 09/22/21 09/22/21 History lisinopriL [Zestril] 20 mg PO DAILY 09/22/21 09/22/21 History Allergies Allergy/AdvReac Type Severity Reaction Status Date / Time hydralazine Allergy Unknown Verified 09/22/21 16:45 unknown b/p med AdvReac joint pain Uncoded 09/22/21 13:33 Physical Exam Vitals: Vital Signs Temp Pulse Pulse Resp BP BP Pulse Ox 09/23/21 13:28 116 H 18 145/72 98 09/23/21 11:39 116 H 22 170/90 100 09/23/21 10:20 117 H 24 144/80 98 09/23/21 09:53 112 H 22 09/23/21 08:19 115 H 22 155/58 98 09/23/21 07:58 107 H 19 144/79 98 09/23/21 07:39 108 H 19 136/73 95 09/23/21 07:14 97.9 F 109 H 18 113/69 96 09/22/21 21:25 120 H 147/84 97 09/22/21 20:50 98 F 112 H 16 136/78 97 09/22/21 19:00 98.3 F 114 H 16 113/78 97 Intake and Output 09/22/21 09/23/21 09/23/21 22:59 06:59 14:59 Intake Total 650 Output Total 20 Balance 650 -20 Intake: Oral 650 Output: Urine 20 Straight 20 Other: Voiding Method Urinal Incontinent # Voids 1 # Bowel Movements 0 Weight 115.666 kg Physical Exam: Revealed a 51-year-old white male, looks jaundiced, however he is not in respiratory distress. Head: Atraumatic, normocephalic. HEENT:[Neck is supple.] [No neck masses.] [No thyromegaly.] [No JVD.] Chest: [Clear throughout, no crackles, no rhonchi, no wheezes.] Cardiac Exam: [Normal S1 and S2, no S3 gallop, no murmur.] Abdomen: Obese, positive ascites, nontender, no rebound, no guarding. Extremities: 2+ bipedal edema, no clubbing, no cyanosis.] Neurological Exam: Alert and oriented 3 focal neurologic deficits. However apparently the patient has gait dysfunction could not assess his gait today. Psychiatric: Normal mood affect and normal mental status examination. Skin patient is jaundiced otherwise unremarkable. Results - Laboratory Findings CBC and BMP: 09/23/21 10:58 09/23/21 10:58 PT/INR, D-dimer PT 36.6 sec (9.0-12.0) H 09/23/21 11:56 INR 3.7 (<1.2) H 09/23/21 11:56 Abnormal lab findings: Abnormal Labs 09/23/21 09/23/21 09/23/21 03:15 04:00 04:00 RBC 3.34 L Hgb 12.9 L MCV 117.2 H MCH 38.8 H RDW 17.7 H Plt Count 89 L Neutrophils # 8.6 H Lymphocytes # 0.4 L Monocytes # Macrocytosis Marked A PT 28.6 H INR 2.9 H APTT 69.0 H Sodium Chloride Carbon Dioxide BUN Creatinine Glucose POC Glucose (mg/dL) Plasma Lactic Acid Vinh Calcium Phosphorus Magnesium Total Bilirubin AST ALT Alkaline Phosphatase Ammonia Albumin Urine Protein Trace H Urine Blood Trace H Urine Bilirubin 4+ H Urine WBC 19 H Amorphous Sediment Few H Urine Bacteria Few H Hyaline Casts 23 H Urine Mucus Occasional H 09/23/21 09/23/21 09/23/21 04:00 04:00 05:51 RBC Hgb MCV MCH RDW Plt Count Neutrophils # Lymphocytes # Monocytes # Macrocytosis PT INR APTT Sodium 127 L Chloride 90 L Carbon Dioxide 18 L BUN 3 L Creatinine 1.77 H Glucose 37 L* POC Glucose (mg/dL) 40 L Plasma Lactic Acid Vinh 10.2 H* Calcium Phosphorus 5.2 H Magnesium 1.5 L Total Bilirubin 28.2 H* AST 649 H ALT 66 H Alkaline Phosphatase 207 H Ammonia 86 H Albumin 2.7 L Urine Protein Urine Blood Urine Bilirubin Urine WBC Amorphous Sediment Urine Bacteria Hyaline Casts Urine Mucus 09/23/21 09/23/21 09/23/21 06:21 07:19 07:23 RBC Hgb MCV MCH RDW Plt Count Neutrophils # Lymphocytes # Monocytes # Macrocytosis PT INR APTT Sodium Chloride Carbon Dioxide BUN Creatinine Glucose POC Glucose (mg/dL) 101 H 66 L Plasma Lactic Acid Vinh 11.9 H* Calcium Phosphorus Magnesium Total Bilirubin AST ALT Alkaline Phosphatase Ammonia Albumin Urine Protein Urine Blood Urine Bilirubin Urine WBC Amorphous Sediment Urine Bacteria Hyaline Casts Urine Mucus 09/23/21 09/23/21 09/23/21 08:31 08:46 09:10 RBC Hgb MCV MCH RDW Plt Count Neutrophils # Lymphocytes # Monocytes # Macrocytosis PT INR APTT Sodium Chloride Carbon Dioxide BUN Creatinine Glucose POC Glucose (mg/dL) 61 L 62 L 67 L Plasma Lactic Acid Vinh Calcium Phosphorus Magnesium Total Bilirubin AST ALT Alkaline Phosphatase Ammonia Albumin Urine Protein Urine Blood Urine Bilirubin Urine WBC Amorphous Sediment Urine Bacteria Hyaline Casts Urine Mucus 09/23/21 09/23/21 09/23/21 09:30 09:51 10:14 RBC Hgb MCV MCH RDW Plt Count Neutrophils # Lymphocytes # Monocytes # Macrocytosis PT INR APTT Sodium Chloride Carbon Dioxide BUN Creatinine Glucose POC Glucose (mg/dL) 61 L 63 L 67 L Plasma Lactic Acid Vinh Calcium Phosphorus Magnesium Total Bilirubin AST ALT Alkaline Phosphatase Ammonia Albumin Urine Protein Urine Blood Urine Bilirubin Urine WBC Amorphous Sediment Urine Bacteria Hyaline Casts Urine Mucus 09/23/21 09/23/21 09/23/21 10:34 10:58 10:58 RBC Hgb MCV MCH RDW Plt Count Neutrophils # Lymphocytes # Monocytes # Macrocytosis PT INR APTT Sodium 125 L Chloride 89 L Carbon Dioxide 14 L BUN 4 L Creatinine 2.15 H Glucose POC Glucose (mg/dL) 132 H Plasma Lactic Acid Vinh 13.4 H* Calcium 8.2 L Phosphorus Magnesium Total Bilirubin 29.1 H* AST 1310 H ALT 109 H Alkaline Phosphatase 183 H Ammonia Albumin 2.6 L Urine Protein Urine Blood Urine Bilirubin Urine WBC Amorphous Sediment Urine Bacteria Hyaline Casts Urine Mucus 09/23/21 09/23/21 09/23/21 10:58 11:43 11:56 RBC 3.30 L Hgb MCV 123.3 H D MCH 39.3 H RDW 18.7 H Plt Count 76 L Neutrophils # Lymphocytes # 0.4 L Monocytes # 1.1 H Macrocytosis Marked A PT 36.6 H INR 3.7 H APTT Sodium Chloride Carbon Dioxide BUN Creatinine Glucose POC Glucose (mg/dL) 116 H Plasma Lactic Acid Vinh Calcium Phosphorus Magnesium Total Bilirubin AST ALT Alkaline Phosphatase Ammonia Albumin Urine Protein Urine Blood Urine Bilirubin Urine WBC Amorphous Sediment Urine Bacteria Hyaline Casts Urine Mucus 09/23/21 13:47 RBC Hgb MCV MCH RDW Plt Count Neutrophils # Lymphocytes # Monocytes # Macrocytosis PT INR APTT Sodium Chloride Carbon Dioxide BUN Creatinine Glucose POC Glucose (mg/dL) 115 H Plasma Lactic Acid Vinh Calcium Phosphorus Magnesium Total Bilirubin AST ALT Alkaline Phosphatase Ammonia Albumin Urine Protein Urine Blood Urine Bilirubin Urine WBC Amorphous Sediment Urine Bacteria Hyaline Casts Urine Mucus - Diagnostic Findings Chest x-ray: image reviewed (No evidence of acute pulmonary disease) Additional studies: CT of the abdomen and pelvis as noted in HPI Assessment and Plan Assessment: Impression: Acute hepatic failure secondary to alcoholic hepatitis Acute jaundice secondary to alcoholic liver disease Severe hyperbilirubinemia secondary to above Ascites secondary to above History of alcoholism. Benign essential hypertension. Obesity. Chronic abdominal aortic dissection. Hyponatremia, likely secondary to fluid overload/hypervolemic hyponatremia or could be secondary to excessive drinking/alcoholism. Acute kidney injury, no hydronephrosis on CT of the abdomen and pelvis would be concerned about his peritoneal syndrome or concerned about pressure and compartment syndrome on the bladder. Acute metabolic acidosis secondary to acute kidney injury Hypomagnesemia secondary to poor intake Recommendation: Patient will be transferred to the ICU Agree with fluid restriction, 1500 a month or day. Patient will have a Vo catheter placed and will measure bladder pressures. Patient to undergo paracentesis as soon as possible after correcting his coagulopathy related to his liver disease. Patient has elevated INR. Agree with holding lisinopril and antihypertensive for now. Agree with antibiotics/Zosyn Agree with close monitoring in the ICU. We will continue to follow patient is critically ill. Time with Patient: Greater than 30
[2021-09-23] MEDS ORDERED: PIPERACILLIN-TAZOBACTAM 3.375 GM in SODIUM CHLORIDE 0.9% 100 ML IVPB SCH (16:00)
[2021-09-23] MEDS ORDERED: LORazepam 2 MG/ML INJ IV PRN ×3 (16:22)
[2021-09-23] MEDS ORDERED: THIAMINE 100 MG/ML 2 ML VIAL IM STA (16:22)
[2021-09-23 16:26] VITALS: BMI 39.9
--- NOTE | 2021-09-23 16:44 | P.CONS ---
History of Present Illness - Reason for Consult Consult date: 09/23/21 Liver failure, ascites, hyperbilirubinemia Requesting physician: April Thompson - Chief Complaint Jaundice - History of Present Illness This is a 51 year old white male who presented to the emergency department with concerns for yellowing eyes and skin. He has past medical hisotry of hypertension and thoracic aortic aneurysm with repair about six years ago. He states his family started noticing he was yellow 1-2 days ago. He states his urine has been dark for the past 2-3 days. He has also noted abdominal distention for about 2-3 days. He admits to drinking 2-3 tall beers a day for at least the past 10 years. He denies any previous knowledge of liver disease. He denies any history of hepatitis. He has not started any new medications, no recent antibiotic use. He is also having difficulty with voiding. He denies any chest pain or shortness of breath. He does admit to abdominal discomfort and swelling. He is afebrile. An A team was called this morning due to abnormal labs with elevated lactic acid. WBC 8 Hg 13 HCT 40.8 platelet count 76,000 INR 3.7 Sodium 125 potassium 4.9 BUN 4 Creatinine 2.15 glucose 37 Plasma lactic acid 11.2 Total bilirubin 29 AST 1310 ALT 109 Alk phos 183 Ammonia 86 Acute hepatitis panel non-reactive CT abdomen/pelvic reports Ascites, dilated appendix, thickened hepatic flexure correlate for colitis, AAA 4.1 with dissection that appears the same as previous in 2020 Review of Systems REVIEW OF SYSTEMS: CARDIOPULMONARY: No chest pain or shortness of breath. Gastrointestinal: Abdominal discomfort with distention. Burning sensation in epigastric region, no associated abdominal pain. No nausea or vomiting. No hematemesis, coffee-ground emesis. No rectal bleeding, or melena. GENITOURINARY: No dysuria or hematuria. Dark urine. Urinary retention. MUSCULOSKELETAL: Reports normal range of motion SKIN: No rashes. Jaundice. ENDOCRINE: No chills, fevers. No excessive weight gain or loss. No polydipsia or polyuria. PSYCHIATRIC: Unremarkable. NEUROLOGY: No change in mental status. Denies dizziness, headache. ENT: Vision unremarkable. CONSTITUTIONAL: No recent weight loss. No fever, chills, night sweats. Past Medical History Past Medical History: Hypertension Additional Past Medical History / Comment(s): AAA History of Any Multi-Drug Resistant Organisms: None Reported Additional Past Surgical History / Comment(s): AAA repair - 7 years ago at [facility] Past Anesthesia/Blood Transfusion Reactions: No Reported Reaction Past Psychological History: No Psychological Hx Reported Smoking Status: Never smoker Past Alcohol Use History: Abuse, Daily, Heavy Past Drug Use History: None Reported Medications and Allergies Home Medications Medication Instructions Recorded Confirmed Type Aspirin EC [Ecotrin Low Dose] 81 mg PO DAILY 05/08/21 09/22/21 History Doxazosin [Cardura] 4 mg PO DAILY #30 tab 05/10/21 09/22/21 Rx Cyclobenzaprine [Flexeril] 10 mg PO HS #30 tab 08/15/21 09/22/21 Rx Albuterol Inhaler [Ventolin Hfa 2 puff INHALATION RT-QID PRN 09/22/21 09/22/21 History Inhaler] Budesonide/Formoterol Fumarate 2 puff INHALATION RT-BID 09/22/21 09/22/21 History [Symbicort 160-4.5 Mcg Inhaler] Ergocalciferol (Vitamin D2) 1,250 mcg PO Q7D 09/22/21 09/22/21 History [Drisdol (50,000 Iu)] Furosemide [Lasix] 20 mg PO DAILY 09/22/21 09/22/21 History Labetalol HCl [Trandate] 300 mg PO DAILY 09/22/21 09/22/21 History Loperamide HCl [Imodium A-D] 2 - 4 mg PO QID PRN 09/22/21 09/22/21 History cloNIDine HCL [Catapres] 0.3 mg PO TID 09/22/21 09/22/21 History lisinopriL [Zestril] 20 mg PO DAILY 09/22/21 09/22/21 History Allergies Allergy/AdvReac Type Severity Reaction Status Date / Time hydralazine Allergy Unknown Verified 09/22/21 16:45 unknown b/p med AdvReac joint pain Uncoded 09/22/21 13:33 Physical Exam Vitals: Vital Signs Temp Pulse Pulse Resp BP BP Pulse Ox 09/23/21 08:19 115 H 22 155/58 98 09/23/21 07:58 107 H 19 144/79 98 09/23/21 07:39 108 H 19 136/73 95 05/05/22 07:14 97.9 F 109 H 18 113/69 96 09/22/21 21:25 120 H 147/84 97 09/22/21 20:50 98 F 112 H 16 136/78 97 09/22/21 19:00 98.3 F 114 H 16 113/78 97 09/22/21 13:29 98.2 F 116 H 15 132/77 98 Intake and Output 09/22/21 09/23/21 09/23/21 22:59 06:59 14:59 Intake Total 650 Balance 650 Intake: Oral 650 Other: # Voids 1 # Bowel Movements 0 Weight 115.666 kg General appearance: The patient is alert, oriented, appears in no acute distress. HET: Head is normocephalic and atraumatic. Conjunctiva pink. Sclera deeply icteric. Neck: Supple without lymphadenopathy. Trachea midline. Heart: S1 S2. Regular rate and rhythm. Lungs: Clear to auscultation. Abdomen: Soft,tender with distention, ascites, positive bowel sounds. No g uarding or rigidity. Skin: No rashes. No jaundice. Extremities: Normal skin color and turgor. Bilateral pedal edema Neurological: No focal deficits. Alert and oriented x3. Results CBC & Chem 7: 09/23/21 10:58 09/23/21 10:58 Labs: Abnormal Lab Results - Last 24 Hours (Table) 09/23/21 09/23/21 09/23/21 Range/Units 03:15 04:00 04:00 RBC 3.34 L (4.30-5.90) m/uL Hgb 12.9 L (13.0-17.5) gm/dL MCV 117.2 H (80.0-100.0) fL MCH 38.8 H (25.0-35.0) pg RDW 17.7 H (11.5-15.5) % Plt Count 89 L (150-450) k/uL Neutrophils # 8.6 H (1.3-7.7) k/uL Lymphocytes # 0.4 L (1.0-4.8) k/uL Macrocytosis Marked A PT 28.6 H (9.0-12.0) sec INR 2.9 H (<1.2) APTT 69.0 H (22.0-30.0) sec Sodium (137-145) mmol/L Chloride (98-107) mmol/L Carbon Dioxide (22-30) mmol/L BUN (9-20) mg/dL Creatinine (0.66-1.25) mg/dL Glucose (74-99) mg/dL POC Glucose (mg/dL) (75-99) mg/dL Plasma Lactic Acid Vinh (0.7-2.0) mmol/L Phosphorus (2.5-4.5) mg/dL Magnesium (1.6-2.3) mg/dL Total Bilirubin (0.2-1.3) mg/dL AST (17-59) U/L ALT (4-49) U/L Alkaline Phosphatase (38-126) U/L Ammonia (<30) umol/L Albumin (3.5-5.0) g/dL Urine Protein Trace H (Negative) Urine Blood Trace H (Negative) Urine Bilirubin 4+ H (Negative) Urine WBC 19 H (0-5) /hpf Amorphous Sediment Few H (None) /hpf Urine Bacteria Few H (None) /hpf Hyaline Casts 23 H (0-2) /lpf Urine Mucus Occasional H (None) /hpf 09/23/21 09/23/21 09/23/21 Range/Units 04:00 04:00 05:51 RBC (4.30-5.90) m/uL Hgb (13.0-17.5) gm/dL MCV (80.0-100.0) fL MCH (25.0-35.0) pg RDW (11.5-15.5) % Plt Count (150-450) k/uL Neutrophils # (1.3-7.7) k/uL Lymphocytes # (1.0-4.8) k/uL Macrocytosis PT (9.0-12.0) sec INR (<1.2) APTT (22.0-30.0) sec Sodium 127 L (137-145) mmol/L Chloride 90 L (98-107) mmol/L Carbon Dioxide 18 L (22-30) mmol/L BUN 3 L (9-20) mg/dL Creatinine 1.77 H (0.66-1.25) mg/dL Glucose 37 L* (74-99) mg/dL POC Glucose (mg/dL) 40 L (75-99) mg/dL Plasma Lactic Acid Vinh 10.2 H* (0.7-2.0) mmol/L Phosphorus 5.2 H (2.5-4.5) mg/dL Magnesium 1.5 L (1.6-2.3) mg/dL Total Bilirubin 28.2 H* (0.2-1.3) mg/dL AST 649 H (17-59) U/L ALT 66 H (4-49) U/L Alkaline Phosphatase 207 H (38-126) U/L Ammonia 86 H (<30) umol/L Albumin 2.7 L (3.5-5.0) g/dL Urine Protein (Negative) Urine Blood (Negative) Urine Bilirubin (Negative) Urine WBC (0-5) /hpf Amorphous Sediment (None) /hpf Urine Bacteria (None) /hpf Hyaline Casts (0-2) /lpf Urine Mucus (None) /hpf 09/23/21 09/23/21 09/23/21 Range/Units 06:21 07:19 07:23 RBC (4.30-5.90) m/uL Hgb (13.0-17.5) gm/dL MCV (80.0-100.0) fL MCH (25.0-35.0) pg RDW (11.5-15.5) % Plt Count (150-450) k/uL Neutrophils # (1.3-7.7) k/uL Lymphocytes # (1.0-4.8) k/uL Macrocytosis PT (9.0-12.0) sec INR (<1.2) APTT (22.0-30.0) sec Sodium (137-145) mmol/L Chloride (98-107) mmol/L Carbon Dioxide (22-30) mmol/L BUN (9-20) mg/dL Creatinine (0.66-1.25) mg/dL Glucose (74-99) mg/dL POC Glucose (mg/dL) 101 H 66 L (75-99) mg/dL Plasma Lactic Acid Vinh 11.9 H* (0.7-2.0) mmol/L Phosphorus (2.5-4.5) mg/dL Magnesium (1.6-2.3) mg/dL Total Bilirubin (0.2-1.3) mg/dL AST (17-59) U/L ALT (4-49) U/L Alkaline Phosphatase (38-126) U/L Ammonia (<30) umol/L Albumin (3.5-5.0) g/dL Urine Protein (Negative) Urine Blood (Negative) Urine Bilirubin (Negative) Urine WBC (0-5) /hpf Amorphous Sediment (None) /hpf Urine Bacteria (None) /hpf Hyaline Casts (0-2) /lpf Urine Mucus (None) /hpf 09/23/21 09/23/21 Range/Units 08:31 08:46 RBC (4.30-5.90) m/uL Hgb (13.0-17.5) gm/dL MCV (80.0-100.0) fL MCH (25.0-35.0) pg RDW (11.5-15.5) % Plt Count (150-450) k/uL Neutrophils # (1.3-7.7) k/uL Lymphocytes # (1.0-4.8) k/uL Macrocytosis PT (9.0-12.0) sec INR (<1.2) APTT (22.0-30.0) sec Sodium (137-145) mmol/L Chloride (98-107) mmol/L Carbon Dioxide (22-30) mmol/L BUN (9-20) mg/dL Creatinine (0.66-1.25) mg/dL Glucose (74-99) mg/dL POC Glucose (mg/dL) 61 L 62 L (75-99) mg/dL Plasma Lactic Acid Vinh (0.7-2.0) mmol/L Phosphorus (2.5-4.5) mg/dL Magnesium (1.6-2.3) mg/dL Total Bilirubin (0.2-1.3) mg/dL AST (17-59) U/L ALT (4-49) U/L Alkaline Phosphatase (38-126) U/L Ammonia (<30) umol/L Albumin (3.5-5.0) g/dL Urine Protein (Negative) Urine Blood (Negative) Urine Bilirubin (Negative) Urine WBC (0-5) /hpf Amorphous Sediment (None) /hpf Urine Bacteria (None) /hpf Hyaline Casts (0-2) /lpf Urine Mucus (None) /hpf Comments: CT abdomen/pelvic reports Ascites, dilated appendix, thickened hepatic flexure correlate for colitis, AAA 4.1 with dissection that appears the same as previous in 2020 Assessment and Plan (1) Alcoholic hepatitis Narrative/Plan: This is a 51 year old male who presented with jaundice and noted to have elevated bilirubin and LFTS, as well as lactic acid. Labs are consistent with acute alcoholic hepatitis. He has a significant history of alcohol abuse and admits to drinking 2-3 tall beers a day for the last 10 years. He denies any new medicaitons or antibiotic use. NO prior history of liver disease. Avoid hepatotoxic medications, continue supportive care. Will repeat labs tomorrow and monitor closely. May need to consider transfer to tertiary center if no improvement. Current Visit: Yes Status: Acute Code(s): K70.10 - ALCOHOLIC HEPATITIS WITHOUT ASCITES SNOMED Code(s): 956005147 (2) Ascites Narrative/Plan: Paracentesis when INR stable Current Visit: Yes Status: Acute Code(s): R18.8 - OTHER ASCITES SNOMED Code(s): 700656502 (3) Jaundice Current Visit: Yes Status: Acute Code(s): R17 - UNSPECIFIED JAUNDICE SNOMED Code(s): 09814660 (4) Hyponatremia Narrative/Plan: Nephrology following, will defer diuretics to them. Current Visit: Yes Status: Acute Code(s): E87.1 - HYPO-OSMOLALITY AND HYPONATREMIA SNOMED Code(s): 54229869 Plan: 1. Continue symptomatic and supportive care 2. Avoid hepatoxic medications 3. Alcohol abstinence 4. Daily CBC, CMP, INR, ammonia 5. Start Lactulose 30 GM TID 6. Low sodium diet 7. Defer diuretics to nephrology 8. Paracentesis once INR and patient stable Thank you for this consultation, we will continue to monitor. Dr. Jonathan Dorman I agree with the dictator's note, documented as a scribe by Asha Martin.
--- NOTE | 2021-09-23 18:16 | OP ---
OPERATIVE REPORT OPERATIVE REPORT: Placement of right femoral triple-lumen catheter. PREOPERATIVE DIAGNOSIS: Acute hepatic failure and ascites. POSTOPERATIVE DIAGNOSIS: Acute hepatic failure and ascites. ANESTHESIA USED: Two mL of 1% lidocaine. PROCEDURE DESCRIPTION: The patient was placed in supine position. The right groin was prepared in a sterile fashion and drapes were applied. The right femoral vein was cannulated, and a guidewire was placed. A triple-lumen catheter was inserted over the guidewire, and the guidewire was removed. Good blood flow was noted in the 3 different ports of the triple-lumen catheter. No evidence of complications. Line was secured using 3.0 silk sutures. There was evidence of good flow in the 3 different ports of the triple-lumen catheter. MMODL / IJN: [id number] /
[2021-09-23] MEDS: LACTULOSE 20 GM/30 ML CUP PO SCH ×2 (18:37→22:21)
[2021-09-23] MEDS: THIAMINE 100 MG TAB PO SCH (18:38)
[2021-09-23] MEDS: METOCLOPRAMIDE 5 MG/ML 2 ML VIAL IVP PRN (22:30)
[2021-09-24] MEDS: PIPERACILLIN-TAZOBACTAM 3.375 GM in SODIUM CHLORIDE 0.9% 100 ML IVPB SCH ×2 (02:06→09:35)
[2021-09-24] MEDS: THIAMINE 100 MG TAB PO SCH (05:43)
[2021-09-24 07:21] LABS: Anisocytosis Slight; HCT 34.5 % (39.0-53.0); HGB 11.4 gm/dL (13.0-17.5); MCHC 33.1 g/dL (31.0-37.0); Macrocytosis Marked; Mean Platelet Volume 11.1; RBC 2.92 m/uL (4.30-5.90); RDW 17.8 % (11.5-15.5); WBC 5.4 k/uL (3.8-10.6)
[2021-09-24 07:44] LABS: ALT 83 U/L (4-49); African American GFR (CKD) 28 (>60 ml/min/1.73 sqM); Albumin 2.3 g/dL (3.5-5.0); Anion Gap 14 mmol/L; Blood Urea Nitrogen 6 mg/dL (9-20); Calcium 8.5 mg/dL (8.4-10.2); Carbon Dioxide 25 mmol/L (22-30); Chloride 87 mmol/L (98-107); Glucose 98 mg/dL (74-99); Magnesium 1.9 mg/dL (1.6-2.3); Non-African American GFR(CKD) 25 (>60 ml/min/1.73 sqM); Potassium 3.9 mmol/L (3.5-5.1); Sodium 126 mmol/L (137-145)
[2021-09-24 07:49] LABS: INR 2.8 (<1.2); Prothrombin Time 28.3 sec (9.0-12.0)
[2021-09-24 07:58] LABS: AST 963 U/L (17-59); Alkaline Phosphatase 142 U/L (38-126); Total Protein 6.1 g/dL (6.3-8.2)
[2021-09-24 07:59] LABS: Total Bilirubin 28.9 mg/dL (0.2-1.3)
[2021-09-24] MEDS: SYMBICORT 160-4.5 MCG INHALER INHALATION SCH (08:02)
[2021-09-24] MEDS: cloNIDine HCL 0.1 MG TAB PO SCH (08:51)
[2021-09-24] MEDS: LABETALOL 100 MG TAB PO SCH (08:51)
[2021-09-24] MEDS: DOXAZOSIN 4 MG TAB PO SCH (08:52)
[2021-09-24] MEDS: METOCLOPRAMIDE 5 MG/ML 2 ML VIAL IVP PRN (08:53)
[2021-09-24] MEDS: LACTULOSE 20 GM/30 ML CUP PO SCH ×2 (09:02→14:36)
[2021-09-24] MEDS: PHYTONADIONE ORAL 5 MG/5 ML ORAL.SYRG PO SCH (09:11)
[2021-09-24 09:27] LABS: Platelet Count 45 k/uL (150-450)
--- NOTE | 2021-09-24 09:27 | US ---
EXAMINATION TYPE: US abdomen limited DATE OF EXAM: 09/24/2021 COMPARISON: CT CLINICAL HISTORY: ascites. Small amount of ascites noted. IMPRESSION: As above
--- NOTE | 2021-09-24 09:46 | P.PN ---
Subjective Progress Note Date: 09/24/21 Principal diagnosis: Liver disease 51-year-old male who was brought into the emergency department for concerns of jaundice and abdominal distention. Patient has a significant history of alcohol abuse and admits to 2-312 beers a day for at least the last 10 year duration. Denied any previous underlying liver disease that he was aware of. No history of hepatitis. There is noted on admission to have elevated total bilirubin as well as LFTs consistent with alcoholic hepatitis. Patient was transferred to the ICU yesterday afternoon for elevated plasma lactic acid and concerns for advanced liver disease. Patient is alert and oriented 3 this morning. He was started on lactulose however had some nausea yesterday evening and was not given his evening dose. Had one bowel movement reported yesterday. No bowel movement so far today. Patient received vitamin K yesterday. Repeat labs today WBC 5.4 hemoglobin 11.4 platelet count 45,000 INR 2.8 sodium 126 potassium 3.9 BUN 6 creatinine 2.86 plasma lactic acid 6.2 total bilirubin 28.9 AST 1963 ALT 83 alk phos 142 ammonia 47. Patient is denying any acute changes through the night. Still has some abdominal discomfort and distention. No shortness of breath or chest pain reported. Nausea has improved. Objective - Vital Signs Vital signs: Vital Signs Temp 98.7 F 09/24/21 08:00 Pulse 90 09/24/21 08:00 Resp 15 09/24/21 08:00 BP 121/68 09/24/21 08:00 Pulse Ox 96 09/24/21 08:00 Intake & Output 09/23/21 09/24/21 09/24/21 18:59 06:59 18:59 Intake Total 1756 1060 40 Output Total 90 965 95 Balance 1666 95 -55 Weight 115.666 kg 126.4 kg Intake: IV 500 640 40 0.9@20mls/hr 140 40 Sodium Chloride 0.9% 500 500 500 ml 500 ml @ 999 mls/hr IV .Q31M [facility] Rx#:[id number] Intake, IV Titration 200 Amount Piperacillin-Tazobactam 3 100 .375 gm In Sodium Chloride 0.9% 100 ml @ 25 mls/hr IVPB Q8H [facility] Rx#: [id number] Piperacillin-Tazobactam 3 100 .375 gm In Sodium Chloride 0.9% 100 ml @ 25 mls/hr IVPB Q8HR [facility] Rx# :[id number] Oral 220 Blood Product 1256 Ffp 24 Cpd Unit 325 [id number] Ffp 24 Cpd Unit 303 [id number] Output: Urine 90 665 95 Straight 25 Emesis 300 Other: Voiding Method Indwelling Catheter Indwelling Catheter # Bowel Movements 1 - Exam General appearance: The patient is alert, oriented, appears in no acute distress. HET: Head is normocephalic and atraumatic. Conjunctiva pink. Sclera deeply icteric. Neck: Supple without lymphadenopathy. Abdomen: Soft, tender, distended, ascites. No guarding or rigidity. Extremities: Normal skin color and turgor. Bilateral pedal edema. Skin: No rashes, jaundice Neurological: No focal deficits. Alert and oriented x3. - Labs CBC & Chem 7: 09/24/21 06:54 09/24/21 06:54 Labs: Abnormal Lab Results - Last 24 Hours (Table) 09/23/21 09/23/21 09/23/21 Range/Units 08:46 09:10 09:30 RBC (4.30-5.90) m/uL Hgb (13.0-17.5) gm/dL Hct (39.0-53.0) % MCV (80.0-100.0) fL MCH (25.0-35.0) pg RDW (11.5-15.5) % Plt Count (150-450) k/uL Lymphocytes # (1.0-4.8) k/uL Monocytes # (0-1.0) k/uL Macrocytosis PT (9.0-12.0) sec INR (<1.2) Sodium (137-145) mmol/L Chloride (98-107) mmol/L Carbon Dioxide (22-30) mmol/L BUN (9-20) mg/dL Creatinine (0.66-1.25) mg/dL POC Glucose (mg/dL) 62 L 67 L 61 L (75-99) mg/dL Osmolality (280-301) mosm/kg Plasma Lactic Acid Vinh (0.7-2.0) mmol/L Calcium (8.4-10.2) mg/dL Total Bilirubin (0.2-1.3) mg/dL AST (17-59) U/L ALT (4-49) U/L Alkaline Phosphatase (38-126) U/L Ammonia (<30) umol/L Total Protein (6.3-8.2) g/dL Albumin (3.5-5.0) g/dL Ur Random Sodium (40-220) mmol/L 09/23/21 09/23/21 09/23/21 Range/Units 09:51 10:14 10:34 RBC (4.30-5.90) m/uL Hgb (13.0-17.5) gm/dL Hct (39.0-53.0) % MCV (80.0-100.0) fL MCH (25.0-35.0) pg RDW (11.5-15.5) % Plt Count (150-450) k/uL Lymphocytes # (1.0-4.8) k/uL Monocytes # (0-1.0) k/uL Macrocytosis PT (9.0-12.0) sec INR (<1.2) Sodium (137-145) mmol/L Chloride (98-107) mmol/L Carbon Dioxide (22-30) mmol/L BUN (9-20) mg/dL Creatinine (0.66-1.25) mg/dL POC Glucose (mg/dL) 63 L 67 L 132 H (75-99) mg/dL Osmolality (280-301) mosm/kg Plasma Lactic Acid Vinh (0.7-2.0) mmol/L Calcium (8.4-10.2) mg/dL Total Bilirubin (0.2-1.3) mg/dL AST (17-59) U/L ALT (4-49) U/L Alkaline Phosphatase (38-126) U/L Ammonia (<30) umol/L Total Protein (6.3-8.2) g/dL Albumin (3.5-5.0) g/dL Ur Random Sodium (40-220) mmol/L 09/23/21 09/23/21 09/23/21 Range/Units 10:58 10:58 10:58 RBC 3.30 L (4.30-5.90) m/uL Hgb (13.0-17.5) gm/dL Hct (39.0-53.0) % MCV 123.3 H D (80.0-100.0) fL MCH 39.3 H (25.0-35.0) pg RDW 18.7 H (11.5-15.5) % Plt Count 76 L (150-450) k/uL Lymphocytes # 0.4 L (1.0-4.8) k/uL Monocytes # 1.1 H (0-1.0) k/uL Macrocytosis Marked A PT (9.0-12.0) sec INR (<1.2) Sodium 125 L (137-145) mmol/L Chloride 89 L (98-107) mmol/L Carbon Dioxide 14 L (22-30) mmol/L BUN 4 L (9-20) mg/dL Creatinine 2.15 H (0.66-1.25) mg/dL POC Glucose (mg/dL) (75-99) mg/dL Osmolality (280-301) mosm/kg Plasma Lactic Acid Vinh 13.4 H* (0.7-2.0) mmol/L Calcium 8.2 L (8.4-10.2) mg/dL Total Bilirubin 29.1 H* (0.2-1.3) mg/dL AST 1310 H (17-59) U/L ALT 109 H (4-49) U/L Alkaline Phosphatase 183 H (38-126) U/L Ammonia (<30) umol/L Total Protein (6.3-8.2) g/dL Albumin 2.6 L (3.5-5.0) g/dL Ur Random Sodium (40-220) mmol/L 09/23/21 09/23/21 09/23/21 Range/Units 11:43 11:56 13:47 RBC (4.30-5.90) m/uL Hgb (13.0-17.5) gm/dL Hct (39.0-53.0) % MCV (80.0-100.0) fL MCH (25.0-35.0) pg RDW (11.5-15.5) % Plt Count (150-450) k/uL Lymphocytes # (1.0-4.8) k/uL Monocytes # (0-1.0) k/uL Macrocytosis PT 36.6 H (9.0-12.0) sec INR 3.7 H (<1.2) Sodium (137-145) mmol/L Chloride (98-107) mmol/L Carbon Dioxide (22-30) mmol/L BUN (9-20) mg/dL Creatinine (0.66-1.25) mg/dL POC Glucose (mg/dL) 116 H 115 H (75-99) mg/dL Osmolality (280-301) mosm/kg Plasma Lactic Acid Vinh (0.7-2.0) mmol/L Calcium (8.4-10.2) mg/dL Total Bilirubin (0.2-1.3) mg/dL AST (17-59) U/L ALT (4-49) U/L Alkaline Phosphatase (38-126) U/L Ammonia (<30) umol/L Total Protein (6.3-8.2) g/dL Albumin (3.5-5.0) g/dL Ur Random Sodium (40-220) mmol/L 09/23/21 09/23/21 09/23/21 Range/Units 14:13 14:21 14:45 RBC (4.30-5.90) m/uL Hgb (13.0-17.5) gm/dL Hct (39.0-53.0) % MCV (80.0-100.0) fL MCH (25.0-35.0) pg RDW (11.5-15.5) % Plt Count (150-450) k/uL Lymphocytes # (1.0-4.8) k/uL Monocytes # (0-1.0) k/uL Macrocytosis PT (9.0-12.0) sec INR (<1.2) Sodium (137-145) mmol/L Chloride (98-107) mmol/L Carbon Dioxide (22-30) mmol/L BUN (9-20) mg/dL Creatinine (0.66-1.25) mg/dL POC Glucose (mg/dL) (75-99) mg/dL Osmolality 264 L (280-301) mosm/kg Plasma Lactic Acid Vinh 11.2 H* (0.7-2.0) mmol/L Calcium (8.4-10.2) mg/dL Total Bilirubin (0.2-1.3) mg/dL AST (17-59) U/L ALT (4-49) U/L Alkaline Phosphatase (38-126) U/L Ammonia (<30) umol/L Total Protein (6.3-8.2) g/dL Albumin (3.5-5.0) g/dL Ur Random Sodium <20 L (40-220) mmol/L 09/23/21 09/23/21 09/24/21 Range/Units 18:54 21:22 00:00 RBC (4.30-5.90) m/uL Hgb (13.0-17.5) gm/dL Hct (39.0-53.0) % MCV (80.0-100.0) fL MCH (25.0-35.0) pg RDW (11.5-15.5) % Plt Count (150-450) k/uL Lymphocytes # (1.0-4.8) k/uL Monocytes # (0-1.0) k/uL Macrocytosis PT (9.0-12.0) sec INR (<1.2) Sodium (137-145) mmol/L Chloride (98-107) mmol/L Carbon Dioxide (22-30) mmol/L BUN (9-20) mg/dL Creatinine (0.66-1.25) mg/dL POC Glucose (mg/dL) (75-99) mg/dL Osmolality (280-301) mosm/kg Plasma Lactic Acid Vinh 8.1 H* 7.3 H* 6.8 H* (0.7-2.0) mmol/L Calcium (8.4-10.2) mg/dL Total Bilirubin (0.2-1.3) mg/dL AST (17-59) U/L ALT (4-49) U/L Alkaline Phosphatase (38-126) U/L Ammonia (<30) umol/L Total Protein (6.3-8.2) g/dL Albumin (3.5-5.0) g/dL Ur Random Sodium (40-220) mmol/L 09/24/21 09/24/21 09/24/21 Range/Units 04:00 06:54 06:54 RBC 2.92 L (4.30-5.90) m/uL Hgb 11.4 L (13.0-17.5) gm/dL Hct 34.5 L (39.0-53.0) % MCV 118.0 H D (80.0-100.0) fL MCH 39.0 H (25.0-35.0) pg RDW 17.8 H (11.5-15.5) % Plt Count 45 L (150-450) k/uL Lymphocytes # (1.0-4.8) k/uL Monocytes # (0-1.0) k/uL Macrocytosis Marked A PT (9.0-12.0) sec INR (<1.2) Sodium 126 L (137-145) mmol/L Chloride 87 L (98-107) mmol/L Carbon Dioxide (22-30) mmol/L BUN 6 L (9-20) mg/dL Creatinine 2.86 H (0.66-1.25) mg/dL POC Glucose (mg/dL) (75-99) mg/dL Osmolality (280-301) mosm/kg Plasma Lactic Acid Vinh 6.2 H* (0.7-2.0) mmol/L Calcium (8.4-10.2) mg/dL Total Bilirubin 28.9 H* (0.2-1.3) mg/dL AST 963 H (17-59) U/L ALT 83 H (4-49) U/L Alkaline Phosphatase 142 H (38-126) U/L Ammonia (<30) umol/L Total Protein 6.1 L (6.3-8.2) g/dL Albumin 2.3 L (3.5-5.0) g/dL Ur Random Sodium (40-220) mmol/L 09/24/21/11/10 Range/Units 06:54 06:54 RBC (4.30-5.90) m/uL Hgb (13.0-17.5) gm/dL Hct (39.0-53.0) % MCV (80.0-100.0) fL MCH (25.0-35.0) pg RDW (11.5-15.5) % Plt Count (150-450) k/uL Lymphocytes # (1.0-4.8) k/uL Monocytes # (0-1.0) k/uL Macrocytosis PT 28.3 H (9.0-12.0) sec INR 2.8 H (<1.2) Sodium (137-145) mmol/L Chloride (98-107) mmol/L Carbon Dioxide (22-30) mmol/L BUN (9-20) mg/dL Creatinine (0.66-1.25) mg/dL POC Glucose (mg/dL) (75-99) mg/dL Osmolality (280-301) mosm/kg Plasma Lactic Acid Vinh (0.7-2.0) mmol/L Calcium (8.4-10.2) mg/dL Total Bilirubin (0.2-1.3) mg/dL AST (17-59) U/L ALT (4-49) U/L Alkaline Phosphatase (38-126) U/L Ammonia 47 H (<30) umol/L Total Protein (6.3-8.2) g/dL Albumin (3.5-5.0) g/dL Ur Random Sodium (40-220) mmol/L Microbiology - Last 24 Hours (Table) 09/23/21 03:15 Urine Culture - Preliminary Urine,Voided Assessment and Plan (1) Alcoholic hepatitis Narrative/Plan: This is a 51 year old male who presented with jaundice and noted to have elevated bilirubin and LFTS, as well as lactic acid. Labs are consistent with acute alcoholic hepatitis. He has a significant history of alcohol abuse and admits to drinking 2-3 tall beers a day for the last 10 years. He denies any new medicaitons or antibiotic use. NO prior history of liver disease. Avoid hepatotoxic medications, continue supportive care. Will repeat labs tomorrow and monitor closely. May need to consider transfer to tertiary center if no improvement. Current Visit: Yes Status: Acute Code(s): K70.10 - ALCOHOLIC HEPATITIS WITHOUT ASCITES SNOMED Code(s): 184759116 (2) Decompensated liver disease Narrative/Plan: Patient continues to have elevated ammonia level, total bilirubin LFTs with no improvement. Gastroenterology will not be available in this hospital over the next 1 week duration. Recommend transfer to tertiary center with engine generator assembler/hepatology services. Current Visit: Yes Status: Acute Code(s): K74.69 - OTHER CIRRHOSIS OF LIVER SNOMED Code(s): 07697236 (3) Ascites Narrative/Plan: Paracentesis when INR stable Current Visit: Yes Status: Acute Code(s): R18.8 - OTHER ASCITES SNOMED Code(s): 843406402 (4) Jaundice Current Visit: Yes Status: Acute Code(s): R17 - UNSPECIFIED JAUNDICE SNOMED Code(s): 52277935 (5) Hyponatremia Narrative/Plan: Nephrology following, will defer diuretics to them. Current Visit: Yes Status: Acute Code(s): E87.1 - HYPO-OSMOLALITY AND HYPONATREMIA SNOMED Code(s): 71007167 (6) Hyperammonemia Narrative/Plan: Continue lactulose 30 g 3 times a day. If patient does not have bowel movement after first dose please repeat in one hour. Current Visit: Yes Status: Acute Code(s): E72.20 - DISORDER OF UREA CYCLE METABOLISM, UNSPECIFIED SNOMED Code(s): 1100441 Plan: 1. Continue symptomatic and supportive care 2. Avoid hepatoxic medications 3. Alcohol abstinence 4. Daily CBC, CMP, INR, ammonia 5. Start Lactulose 30 GM TID, give 1 dose now if patient does not have bowel movement 1 hour repeat dose. 6. Low sodium diet 7. Defer diuretics to nephrology 8. Recommend transfer to tertiary center with engine generator assembler/hepatology services as patient with decompensated liver disease, no available gas troenterologist in house for the next 1 week duration. Primary medicine team notified. Thank you for allowing us to participate in the care of the patient, the GI service will sign off, gastroenterology will not be available at the hospital this weekend and through next week. Again recommend transfer to tertiary center with gastroenterology service. Dr. Jonathan Dorman I agree with the dictator's note, documented as a scribe by Asha Martin.
--- NOTE | 2021-09-24 10:33 | P.PN ---
Subjective Patient is seen in follow-up for acute kidney injury. Renal function worse. Currently off IV fluids. Urine output 40-50 mL an hour. Has a Vo catheter. Bladder pressure 13. Oral intake poor. Vital signs stable. Gen.: Awake. HEENT: Head exam is unremarkable. LUNGS: Breath sounds decreased. HEART: Rate and Rhythm are regular. ABDOMEN: Distention noted. EXTREMITITES: 1+ edema. Objective - Vital Signs Vital signs: Vital Signs Temp 98.7 F 09/24/21 08:00 Pulse 97 09/24/21 09:00 Resp 21 09/24/21 09:00 BP 115/68 09/24/21 09:00 Pulse Ox 95 09/24/21 09:00 Intake & Output 09/23/21 09/24/21 09/24/21 18:59 06:59 18:59 Intake Total 1756 1060 60 Output Total 90 965 135 Balance 1666 95 -75 Weight 115.666 kg 126.4 kg Intake: IV 500 640 60 0.9@20mls/hr 140 60 Sodium Chloride 0.9% 500 500 500 ml 500 ml @ 999 mls/hr IV .Q31M [facility] Rx#:[id number] Intake, IV Titration 200 Amount Piperacillin-Tazobactam 3 100 .375 gm In Sodium Chloride 0.9% 100 ml @ 25 mls/hr IVPB Q8H [facility] Rx#: [id number] Piperacillin-Tazobactam 3 100 .375 gm In Sodium Chloride 0.9% 100 ml @ 25 mls/hr IVPB Q8HR [facility] Rx# :[id number] Oral 220 Blood Product 1256 Ffp 24 Cpd Unit 325 [id number] Ffp 24 Cpd Unit 303 [id number] Output: Urine 90 665 135 Straight 25 Emesis 300 Other: Voiding Method Indwelling Catheter Indwelling Catheter Indwelling Catheter # Bowel Movements 1 - Labs CBC & Chem 7: 09/24/21 06:54 09/24/21 06:54 Labs: Abnormal Lab Results - Last 24 Hours (Table) 09/23/21 09/23/21 09/23/21 Range/Units 10:34 10:58 10:58 RBC (4.30-5.90) m/uL Hgb (13.0-17.5) gm/dL Hct (39.0-53.0) % MCV (80.0-100.0) fL MCH (25.0-35.0) pg RDW (11.5-15.5) % Plt Count (150-450) k/uL Lymphocytes # (1.0-4.8) k/uL Monocytes # (0-1.0) k/uL Macrocytosis PT (9.0-12.0) sec INR (<1.2) Sodium 125 L (137-145) mmol/L Chloride 89 L (98-107) mmol/L Carbon Dioxide 14 L (22-30) mmol/L BUN 4 L (9-20) mg/dL Creatinine 2.15 H (0.66-1.25) mg/dL POC Glucose (mg/dL) 132 H (75-99) mg/dL Osmolality (280-301) mosm/kg Plasma Lactic Acid Vinh 13.4 H* (0.7-2.0) mmol/L Calcium 8.2 L (8.4-10.2) mg/dL Total Bilirubin 29.1 H* (0.2-1.3) mg/dL AST 1310 H (17-59) U/L ALT 109 H (4-49) U/L Alkaline Phosphatase 183 H (38-126) U/L Ammonia (<30) umol/L Total Protein (6.3-8.2) g/dL Albumin 2.6 L (3.5-5.0) g/dL Ur Random Sodium (40-220) mmol/L 09/23/21 09/23/21/10/10 Range/Units 10:58 11:43 11:56 RBC 3.30 L (4.30-5.90) m/uL Hgb (13.0-17.5) gm/dL Hct (39.0-53.0) % MCV 123.3 H D (80.0-100.0) fL MCH 39.3 H (25.0-35.0) pg RDW 18.7 H (11.5-15.5) % Plt Count 76 L (150-450) k/uL Lymphocytes # 0.4 L (1.0-4.8) k/uL Monocytes # 1.1 H (0-1.0) k/uL Macrocytosis Marked A PT 36.6 H (9.0-12.0) sec INR 3.7 H (<1.2) Sodium (137-145) mmol/L Chloride (98-107) mmol/L Carbon Dioxide (22-30) mmol/L BUN (9-20) mg/dL Creatinine (0.66-1.25) mg/dL POC Glucose (mg/dL) 116 H (75-99) mg/dL Osmolality (280-301) mosm/kg Plasma Lactic Acid Vinh (0.7-2.0) mmol/L Calcium (8.4-10.2) mg/dL Total Bilirubin (0.2-1.3) mg/dL AST (17-59) U/L ALT (4-49) U/L Alkaline Phosphatase (38-126) U/L Ammonia (<30) umol/L Total Protein (6.3-8.2) g/dL Albumin (3.5-5.0) g/dL Ur Random Sodium (40-220) mmol/L 09/23/21 09/23/21 09/23/21 Range/Units 13:47 14:13 14:21 RBC (4.30-5.90) m/uL Hgb (13.0-17.5) gm/dL Hct (39.0-53.0) % MCV (80.0-100.0) fL MCH (25.0-35.0) pg RDW (11.5-15.5) % Plt Count (150-450) k/uL Lymphocytes # (1.0-4.8) k/uL Monocytes # (0-1.0) k/uL Macrocytosis PT (9.0-12.0) sec INR (<1.2) Sodium (137-145) mmol/L Chloride (98-107) mmol/L Carbon Dioxide (22-30) mmol/L BUN (9-20) mg/dL Creatinine (0.66-1.25) mg/dL POC Glucose (mg/dL) 115 H (75-99) mg/dL Osmolality 264 L (280-301) mosm/kg Plasma Lactic Acid Vinh 11.2 H* (0.7-2.0) mmol/L Calcium (8.4-10.2) mg/dL Total Bilirubin (0.2-1.3) mg/dL AST (17-59) U/L ALT (4-49) U/L Alkaline Phosphatase (38-126) U/L Ammonia (<30) umol/L Total Protein (6.3-8.2) g/dL Albumin (3.5-5.0) g/dL Ur Random Sodium (40-220) mmol/L 09/23/21 09/23/21 09/23/21 Range/Units 14:45 18:54 21:22 RBC (4.30-5.90) m/uL Hgb (13.0-17.5) gm/dL Hct (39.0-53.0) % MCV (80.0-100.0) fL MCH (25.0-35.0) pg RDW (11.5-15.5) % Plt Count (150-450) k/uL Lymphocytes # (1.0-4.8) k/uL Monocytes # (0-1.0) k/uL Macrocytosis PT (9.0-12.0) sec INR (<1.2) Sodium (137-145) mmol/L Chloride (98-107) mmol/L Carbon Dioxide (22-30) mmol/L BUN (9-20) mg/dL Creatinine (0.66-1.25) mg/dL POC Glucose (mg/dL) (75-99) mg/dL Osmolality (280-301) mosm/kg Plasma Lactic Acid Vinh 8.1 H* 7.3 H* (0.7-2.0) mmol/L Calcium (8.4-10.2) mg/dL Total Bilirubin (0.2-1.3) mg/dL AST (17-59) U/L ALT (4-49) U/L Alkaline Phosphatase (38-126) U/L Ammonia (<30) umol/L Total Protein (6.3-8.2) g/dL Albumin (3.5-5.0) g/dL Ur Random Sodium <20 L (40-220) mmol/L 09/24/21 09/24/21 09/24/21 Range/Units 00:00 04:00 06:54 RBC (4.30-5.90) m/uL Hgb (13.0-17.5) gm/dL Hct (39.0-53.0) % MCV (80.0-100.0) fL MCH (25.0-35.0) pg RDW (11.5-15.5) % Plt Count (150-450) k/uL Lymphocytes # (1.0-4.8) k/uL Monocytes # (0-1.0) k/uL Macrocytosis PT (9.0-12.0) sec INR (<1.2) Sodium 126 L (137-145) mmol/L Chloride 87 L (98-107) mmol/L Carbon Dioxide (22-30) mmol/L BUN 6 L (9-20) mg/dL Creatinine 2.86 H (0.66-1.25) mg/dL POC Glucose (mg/dL) (75-99) mg/dL Osmolality (280-301) mosm/kg Plasma Lactic Acid Vinh 6.8 H* 6.2 H* (0.7-2.0) mmol/L Calcium (8.4-10.2) mg/dL Total Bilirubin 28.9 H* (0.2-1.3) mg/dL AST 963 H (17-59) U/L ALT 83 H (4-49) U/L Alkaline Phosphatase 142 H (38-126) U/L Ammonia (<30) umol/L Total Protein 6.1 L (6.3-8.2) g/dL Albumin 2.3 L (3.5-5.0) g/dL Ur Random Sodium (40-220) mmol/L 09/24/21 09/24/21 09/24/21 Range/Units 06:54 06:54 06:54 RBC 2.92 L (4.30-5.90) m/uL Hgb 11.4 L (13.0-17.5) gm/dL Hct 34.5 L (39.0-53.0) % MCV 118.0 H D (80.0-100.0) fL MCH 39.0 H (25.0-35.0) pg RDW 17.8 H (11.5-15.5) % Plt Count 45 L (150-450) k/uL Lymphocytes # (1.0-4.8) k/uL Monocytes # (0-1.0) k/uL Macrocytosis Marked A PT 28.3 H (9.0-12.0) sec INR 2.8 H (<1.2) Sodium (137-145) mmol/L Chloride (98-107) mmol/L Carbon Dioxide (22-30) mmol/L BUN (9-20) mg/dL Creatinine (0.66-1.25) mg/dL POC Glucose (mg/dL) (75-99) mg/dL Osmolality (280-301) mosm/kg Plasma Lactic Acid Vinh (0.7-2.0) mmol/L Calcium (8.4-10.2) mg/dL Total Bilirubin (0.2-1.3) mg/dL AST (17-59) U/L ALT (4-49) U/L Alkaline Phosphatase (38-126) U/L Ammonia 47 H (<30) umol/L Total Protein (6.3-8.2) g/dL Albumin (3.5-5.0) g/dL Ur Random Sodium (40-220) mmol/L 09/24/21 Range/Units 06:54 RBC (4.30-5.90) m/uL Hgb (13.0-17.5) gm/dL Hct (39.0-53.0) % MCV (80.0-100.0) fL MCH (25.0-35.0) pg RDW (11.5-15.5) % Plt Count (150-450) k/uL Lymphocytes # (1.0-4.8) k/uL Monocytes # (0-1.0) k/uL Macrocytosis PT (9.0-12.0) sec INR (<1.2) Sodium (137-145) mmol/L Chloride (98-107) mmol/L Carbon Dioxide (22-30) mmol/L BUN (9-20) mg/dL Creatinine (0.66-1.25) mg/dL POC Glucose (mg/dL) (75-99) mg/dL Osmolality (280-301) mosm/kg Plasma Lactic Acid Vinh 5.4 H* (0.7-2.0) mmol/L Calcium (8.4-10.2) mg/dL Total Bilirubin (0.2-1.3) mg/dL AST (17-59) U/L ALT (4-49) U/L Alkaline Phosphatase (38-126) U/L Ammonia (<30) umol/L Total Protein (6.3-8.2) g/dL Albumin (3.5-5.0) g/dL Ur Random Sodium (40-220) mmol/L Microbiology - Last 24 Hours (Table) 09/23/21 03:15 Urine Culture - Preliminary Urine,Voided Assessment and Plan Plan: Assessment: 1. Acute kidney injury secondary to ATN - concern for pigment nephropathy due to elevated bilirubin as well as hepatorenal syndrome. No hydronephrosis noted on CAT scan. Creatinine in April 2021 was 0.79 and 1.77 on admission - 2.86 today. 2. Metabolic acidosis secondary to acute kidney injury and lactic acidosis. 3. Acute liver failure with ascites. CAT scan shows fatty infiltration of the liver. GI following. 4. Hyponatremia. Hypervolemic. 5. Hepatic encephalopathy. 6. Hypomagnesemia from poor intake. Replaced. 7. Benign hypertension. Controlled. Plan: Patient currently off IV fluids. Add Lasix 40 mg IV daily. Add spironolactone 25 mg twice daily. 1500 mL fluid resection. Low-salt diet. Paracentesis pending. I will give him albumin pre-and post procedure. Continue to hold lisinopril. Hold antihypertensives for systolic blood pressure less than 120. Avoid nephrotoxins. Awaits transfer to tertiary center for hepatology eval.
[2021-09-24] MEDS ORDERED: SPIRONOLACTONE 25 MG TAB PO SCH (10:45)
[2021-09-24] MEDS ORDERED: FUROSEMIDE 10 MG/ML 4 ML VIAL IV SCH (11:00)
[2021-09-24] MEDS: ALBUMIN HUMAN 25% 50 ML in EMPTY BAG 1 BAG IVPB SCH ×2 (11:12→11:13)
--- NOTE | 2021-09-24 11:54 | P.PN ---
Subjective Progress Note Date: 09/24/21 Principal diagnosis: Acute hepatic failure secondary to alcoholic hepatitis. This is a 51-year-old white male with history of alcoholism, chronic dissection of abdominal aortic aneurysm, history of hypertension, patient was brought in yesterday with multiple complaints including abdominal distention, weakness in the legs, and turning kilo/jaundice. Patient was evaluated in the ER, and he was found to have significant abnormal labs, and significant ascites/anasarca. Patient was also found to have significant abnormal liver enzymes, elevated INR of 3.7, hyponatremia with a sodium of 125, anion gap metabolic acidosis with bicarb of 14, elevated lactic acid, and acute kidney injury with a creatinine of 2.15. Patient was also noted to be jaundiced, his total bilirubin was 29.1. AST was 1310 ALT 109 and alkaline phosphatase 183. Obviously the patient has multiple organ failure, and he is yet to undergo a paracentesis by interventional radiology, considering his complex medical issues, I was asked to see him and possibly transferred to the ICU. I did arrange for the patient to transfer to the ICU, will start the patient on antibiotics for his ascites. Will recommend GI evaluation, and he is also being seen by nephrology. Patient is not a great historian but he was told by family members that he is turning yellow only a few days ago. Patient has been complaining of increased abdominal girth for the last a few weeks, and has been generally weak and feeling numb in his lower extremities. Denies any cough denies any fever no chills, denies any shortness of breath. CT of the abdomen and pelvis clearly showed ascites, and it also showed appendix to be somewhat dilated the radiologist raised the possibility of acute appendicitis. There was evidence of moderate diffuse fatty infiltration of the liver there was also evidence of abdominal aortic aneurysm with dissection the same compared to previous CT of the abdomen back in 2020. Obviously the patient has chronic aortic dissection. Reevaluated today on 09/24/21, patient remains in the ICU, I transferred the patient to the ICU yesterday with acute hepatic failure, ascites, acute kidney injury, worsening jaundice, coagulopathy secondary to liver disease, hyperammonemia level, and thrombocytopenia secondary to alcoholic liver disease patient had elevated INR, and we consulted interventional radiology for paracentesis, I did give the patient yesterday vitamin K and fresh frozen plasma, and I was able to establish a right femoral triple-lumen catheter, interventional radiology is still reluctant to perform paracentesis on this patient because of his coagulopathy. Patient was seen by gastroenterology on consultation, recommendations were made, however we have no gastroenterology coverage over the weekend, and plans are being made to transfer the patient to [facility], but as usual meds are available and the patient may not be able to be transferred easily to any institution. In the meantime, the patient is receiving supportive care measures. But he will definitely need paracentesis, and he is being followed by many consultants including gastroenterology, nephrology, general surgery, pulmonary-ralph, the patient is asymptomatic, he is on 2 L nasal cannula, and O2 saturations 95%. Objective - Vital Signs Vital signs: Vital Signs Temp 98.7 F 09/24/21 08:00 Pulse 84 09/24/21 11:00 Resp 12 09/24/21 11:00 BP 101/62 09/24/21 11:00 Pulse Ox 95 09/24/21 11:00 Intake & Output 09/23/21 09/24/21 09/24/21 18:59 06:59 18:59 Intake Total 1756 1060 100 Output Total 90 965 175 Balance 1666 95 -75 Weight 115.666 kg 126.4 kg Intake: IV 500 640 100 0.9@20mls/hr 140 100 Sodium Chloride 0.9% 500 500 500 ml 500 ml @ 999 mls/hr IV .Q31M [facility] Rx#:[id number] Intake, IV Titration 200 Amount Piperacillin-Tazobactam 3 100 .375 gm In Sodium Chloride 0.9% 100 ml @ 25 mls/hr IVPB Q8H [facility] Rx#: [id number] Piperacillin-Tazobactam 3 100 .375 gm In Sodium Chloride 0.9% 100 ml @ 25 mls/hr IVPB Q8HR [facility] Rx# :[id number] Oral 220 Blood Product 1256 Ffp 24 Cpd Unit 325 [id number] Ffp 24 Cpd Unit 303 [id number] Output: Urine 90 665 175 Straight 25 Emesis 300 Other: Voiding Method Indwelling Catheter Indwelling Catheter Indwelling Catheter # Bowel Movements 1 - Exam Physical Exam: Revealed a 51-year-old white male, looks jaundiced, however he is not in respiratory distress. On few liters nasal cannula. Head: Atraumatic, normocephalic. HEENT:[Neck is supple.] [No neck masses.] [No thyromegaly.] [No JVD.] Chest: [Clear throughout, no crackles, no rhonchi, no wheezes.] Cardiac Exam: [Normal S1 and S2, no S3 gallop, no murmur.] Abdomen: Obese, positive ascites, nontender, no rebound, no guarding. Extremities: 2+ bipedal edema, no clubbing, no cyanosis.] Neurological Exam: Alert and oriented 3 focal neurologic deficits. Psychiatric: Normal mood affect and normal mental status examination. Skin patient is jaundiced otherwise unremarkable. - Labs CBC & Chem 7: 09/24/21 06:54 09/24/21 06:54 Labs: Abnormal Lab Results - Last 24 Hours (Table) 09/23/21 09/23/21 09/23/21 Range/Units 10:58 10:58 10:58 RBC 3.30 L (4.30-5.90) m/uL Hgb (13.0-17.5) gm/dL Hct (39.0-53.0) % MCV 123.3 H D (80.0-100.0) fL MCH 39.3 H (25.0-35.0) pg RDW 18.7 H (11.5-15.5) % Plt Count 76 L (150-450) k/uL Lymphocytes # 0.4 L (1.0-4.8) k/uL Monocytes # 1.1 H (0-1.0) k/uL Macrocytosis Marked A PT (9.0-12.0) sec INR (<1.2) Sodium 125 L (137-145) mmol/L Chloride 89 L (98-107) mmol/L Carbon Dioxide 14 L (22-30) mmol/L BUN 4 L (9-20) mg/dL Creatinine 2.15 H (0.66-1.25) mg/dL POC Glucose (mg/dL) (75-99) mg/dL Osmolality (280-301) mosm/kg Plasma Lactic Acid Vinh 13.4 H* (0.7-2.0) mmol/L Calcium 8.2 L (8.4-10.2) mg/dL Total Bilirubin 29.1 H* (0.2-1.3) mg/dL AST 1310 H (17-59) U/L ALT 109 H (4-49) U/L Alkaline Phosphatase 183 H (38-126) U/L Ammonia (<30) umol/L Total Protein (6.3-8.2) g/dL Albumin 2.6 L (3.5-5.0) g/dL Ur Random Sodium (40-220) mmol/L 09/23/21 09/23/21 09/23/21 Range/Units 11:43 11:56 13:47 RBC (4.30-5.90) m/uL Hgb (13.0-17.5) gm/dL Hct (39.0-53.0) % MCV (80.0-100.0) fL MCH (25.0-35.0) pg RDW (11.5-15.5) % Plt Count (150-450) k/uL Lymphocytes # (1.0-4.8) k/uL Monocytes # (0-1.0) k/uL Macrocytosis PT 36.6 H (9.0-12.0) sec INR 3.7 H (<1.2) Sodium (137-145) mmol/L Chloride (98-107) mmol/L Carbon Dioxide (22-30) mmol/L BUN (9-20) mg/dL Creatinine (0.66-1.25) mg/dL POC Glucose (mg/dL) 116 H 115 H (75-99) mg/dL Osmolality (280-301) mosm/kg Plasma Lactic Acid Vinh (0.7-2.0) mmol/L Calcium (8.4-10.2) mg/dL Total Bilirubin (0.2-1.3) mg/dL AST (17-59) U/L ALT (4-49) U/L Alkaline Phosphatase (38-126) U/L Ammonia (<30) umol/L Total Protein (6.3-8.2) g/dL Albumin (3.5-5.0) g/dL Ur Random Sodium (40-220) mmol/L 09/23/21 09/23/21 09/23/21 Range/Units 14:13 14:21 14:45 RBC (4.30-5.90) m/uL Hgb (13.0-17.5) gm/dL Hct (39.0-53.0) % MCV (80.0-100.0) fL MCH (25.0-35.0) pg RDW (11.5-15.5) % Plt Count (150-450) k/uL Lymphocytes # (1.0-4.8) k/uL Monocytes # (0-1.0) k/uL Macrocytosis PT (9.0-12.0) sec INR (<1.2) Sodium (137-145) mmol/L Chloride (98-107) mmol/L Carbon Dioxide (22-30) mmol/L BUN (9-20) mg/dL Creatinine (0.66-1.25) mg/dL POC Glucose (mg/dL) (75-99) mg/dL Osmolality 264 L (280-301) mosm/kg Plasma Lactic Acid Vinh 11.2 H* (0.7-2.0) mmol/L Calcium (8.4-10.2) mg/dL Total Bilirubin (0.2-1.3) mg/dL AST (17-59) U/L ALT (4-49) U/L Alkaline Phosphatase (38-126) U/L Ammonia (<30) umol/L Total Protein (6.3-8.2) g/dL Albumin (3.5-5.0) g/dL Ur Random Sodium <20 L (40-220) mmol/L 09/23/21 09/23/21 09/24/21 Range/Units 18:54 21:22 00:00 RBC (4.30-5.90) m/uL Hgb (13.0-17.5) gm/dL Hct (39.0-53.0) % MCV (80.0-100.0) fL MCH (25.0-35.0) pg RDW (11.5-15.5) % Plt Count (150-450) k/uL Lymphocytes # (1.0-4.8) k/uL Monocytes # (0-1.0) k/uL Macrocytosis PT (9.0-12.0) sec INR (<1.2) Sodium (137-145) mmol/L Chloride (98-107) mmol/L Carbon Dioxide (22-30) mmol/L BUN (9-20) mg/dL Creatinine (0.66-1.25) mg/dL POC Glucose (mg/dL) (75-99) mg/dL Osmolality (280-301) mosm/kg Plasma Lactic Acid Vinh 8.1 H* 7.3 H* 6.8 H* (0.7-2.0) mmol/L Calcium (8.4-10.2) mg/dL Total Bilirubin (0.2-1.3) mg/dL AST (17-59) U/L ALT (4-49) U/L Alkaline Phosphatase (38-126) U/L Ammonia (<30) umol/L Total Protein (6.3-8.2) g/dL Albumin (3.5-5.0) g/dL Ur Random Sodium (40-220) mmol/L 09/24/21 09/24/21 09/24/21 Range/Units 04:00 06:54 06:54 RBC 2.92 L (4.30-5.90) m/uL Hgb 11.4 L (13.0-17.5) gm/dL Hct 34.5 L (39.0-53.0) % MCV 118.0 H D (80.0-100.0) fL MCH 39.0 H (25.0-35.0) pg RDW 17.8 H (11.5-15.5) % Plt Count 45 L (150-450) k/uL Lymphocytes # (1.0-4.8) k/uL Monocytes # (0-1.0) k/uL Macrocytosis Marked A PT (9.0-12.0) sec INR (<1.2) Sodium 126 L (137-145) mmol/L Chloride 87 L (98-107) mmol/L Carbon Dioxide (22-30) mmol/L BUN 6 L (9-20) mg/dL Creatinine 2.86 H (0.66-1.25) mg/dL POC Glucose (mg/dL) (75-99) mg/dL Osmolality (280-301) mosm/kg Plasma Lactic Acid Vinh 6.2 H* (0.7-2.0) mmol/L Calcium (8.4-10.2) mg/dL Total Bilirubin 28.9 H* (0.2-1.3) mg/dL AST 963 H (17-59) U/L ALT 83 H (4-49) U/L Alkaline Phosphatase 142 H (38-126) U/L Ammonia (<30) umol/L Total Protein 6.1 L (6.3-8.2) g/dL Albumin 2.3 L (3.5-5.0) g/dL Ur Random Sodium (40-220) mmol/L 09/24/21 09/24/21 09/24/21 Range/Units 06:54 06:54 06:54 RBC (4.30-5.90) m/uL Hgb (13.0-17.5) gm/dL Hct (39.0-53.0) % MCV (80.0-100.0) fL MCH (25.0-35.0) pg RDW (11.5-15.5) % Plt Count (150-450) k/uL Lymphocytes # (1.0-4.8) k/uL Monocytes # (0-1.0) k/uL Macrocytosis PT 28.3 H (9.0-12.0) sec INR 2.8 H (<1.2) Sodium (137-145) mmol/L Chloride (98-107) mmol/L Carbon Dioxide (22-30) mmol/L BUN (9-20) mg/dL Creatinine (0.66-1.25) mg/dL POC Glucose (mg/dL) (75-99) mg/dL Osmolality (280-301) mosm/kg Plasma Lactic Acid Vinh 5.4 H* (0.7-2.0) mmol/L Calcium (8.4-10.2) mg/dL Total Bilirubin (0.2-1.3) mg/dL AST (17-59) U/L ALT (4-49) U/L Alkaline Phosphatase (38-126) U/L Ammonia 47 H (<30) umol/L Total Protein (6.3-8.2) g/dL Albumin (3.5-5.0) g/dL Ur Random Sodium (40-220) mmol/L Microbiology - Last 24 Hours (Table) 09/23/21 03:15 Urine Culture - Preliminary Urine,Voided Assessment and Plan Assessment: Impression: Acute hepatic failure secondary to alcoholic hepatitis Acute jaundice secondary to alcoholic liver disease Severe hyperbilirubinemia secondary to above Ascites secondary to above History of alcoholism. Benign essential hypertension. Obesity. Chronic abdominal aortic dissection. Hyponatremia, likely secondary to fluid overload/hypervolemic hyponatremia or could be secondary to excessive drinking/alcoholism. Acute kidney injury, no hydronephrosis on CT of the abdomen , bladder pressures were measured yesterday at 18. Acute metabolic acidosis secondary to acute kidney injury, being followed by nephrology. Hypomagnesemia secondary to poor intake Recommendation: Central line was placed in this patient yesterday as there was no venous access. Patient remains in the ICU, and he is being considered for transfer to [facility]. Will reconsult interventional radiology and hopefully could proceed with paracentesis on this patient after 2 units of fresh frozen plasma given today. Continue fluid restriction at 1500 mL a day Bladder pressures were monitored yesterday and they seem to be reasonable. Hold all nephrotoxic drugs Continue Zosyn empirically since the patient presented with ascites. Continue to monitor in the ICU. Overall prognosis is poor and guarded. Critical care time is over 30 minutes Critical care time is over 30 We'll continue to follow. Time with Patient: Greater than 30
[2021-09-24 12:47] VITALS: TEMP 98.3
--- NOTE | 2021-09-24 13:43 | P.PN ---
Subjective Progress Note Date: 09/24/21 CHIEF COMPLAINT: Weakness and jaundice HISTORY OF PRESENT ILLNESS: Patient did require transfer to the ICU yesterday. He is still jaundice with a total bilirubin of 28.9 he did have 2 episodes of vomiting yesterday. He reports no lower abdominal pain. Surgical service was contacted in regards to appendicitis. No evidence of an acute appendicitis noted. Afebrile. WBC is 5.4 hemoglobin 11.4 platelets are 45 INR is 2.8 sodium is 126 total bilirubin 28.9 LFTs trending downwards. Due to elevated INR patient unable to have paracentesis. Also they are working on transferring patient to [facility] PHYSICAL EXAM: VITAL SIGNS: Reviewed GENERAL: Well-developed in no acute distress. HEENT: No sclera icterus. Extraocular movements grossly intact. Moist buccal mucosa. Head is atraumatic, normocephalic. Hears conversational speech. No nasal drainage. NECK: Supple without lymphadenopathy. CHEST: Non-labored respirations and equal bilateral excursions. CARDIOVASCULAR: Palpable 2+ radial pulses. ABDOMEN: Soft. Nondistended. Nontender. MUSCULOSKELETAL: No clubbing or cyanosis. NEUROLOGIC: No focal or lateralizing signs. Cranial nerves II through XII grossly intact. PSYCH: Appropriate affect. Alert and oriented to person, place and time. SKIN: Well perfused. Good skin turgor. ASSESSMENT: 1. Jaundice 2. Liver failure, acute 3. History of heavy alcohol abuse 4. Gallstones 5. Coagulopathy due to liver failure 6. AAA 7. Hypertensive heart disease 8. Morbid obesity due to excess calories, BMI 39.9 9. Hypoglycemia 10. Lactic acidosis PLAN: -CT of the abdomen reviewed with patent appendix including clinically he has no right lower quadrant abdominal pain and no leukocytosis. No clinical findings of appendicitis. -He has gallstones in the setting of acute liver failure. Conservative management for now. No acute surgical intervention for asymptomatic gallstones. -IV fluid hydration for lactic acidosis -Continue ICU management and supportive care. Agree with transferring patient to higher level of care -Surgical service will sign off. Please call with any questions or concerns Physician Hospice Coordinator note has been reviewed by physician. Signing provider agrees with the documented findings, assessment, and plan of care. CHIEF COMPLAINT: Abnormal computed tomography scan for appendicitis HISTORY OF PRESENT ILLNESS: The patient is a 51 year old male admitted with abdominal distention including jaundice. Diagnostic imaging demonstrated features of possible appendicitis. He also presented with acute liver failure with total bilirubin over 20. He has been transferred to intensive care unit for management of lactic acidosis. He also has tense ascites. REVIEW OF ORGAN SYSTEMS: No fevers or chills, no chest pain, no shortness of breath. PHYSICAL EXAM: VITALS: Reviewed CONSTITUTIONAL: Well developed and in no acute distress. EYES: Conjuctivae with sclera icterus. Extraocular movements grossly intact. HEAD, EARS, NOSE, THROAT: Moist buccal mucosa. Head is atraumatic, normocephalic. No nasal drainage. RESPIRATORY: Labored respirations and equal bilateral excursions. No gross wheezes. CARDIOVASCULAR: Palpable 2+ radial pulses. ABDOMEN: Has tense ascites. No right lower quadrant abdominal pain. MUSCULOSKELETAL: No clubbing cyanosis. SKIN: Well perfused with good skin turgor. Has jaundice. NEUROLOGIC: Cranial nerves II through XII grossly intact. Lethargic. PSYCH: Oriented to person. Flat affect. Lethargic. CLINCAL LABS: Reviewed. INR down from 3.7-2.8. Lactic acid down from 13.4-5.4. Total bilirubin elevated 28.9. ASSESSMENT: 1. Jaundice 2. Liver failure, acute 3. History of heavy alcohol abuse 4. Gallstones 5. Coagulopathy due to liver failure 6. AAA 7. Hypertensive heart disease 8. Morbid obesity due to excess calories, BMI 39.9 9. Hypoglycemia 10. Lactic acidosis PLAN: 1. No surgical intervention as patient has no features of appendicitis 2. Patient be transferred to tertiary care center due to acute liver failure Objective - Vital Signs Vital signs: Vital Signs Temp 98.3 F 09/24/21 12:00 Pulse 90 09/24/21 12:00 Resp 20 09/24/21 12:00 BP 112/62 09/24/21 12:00 Pulse Ox 95 09/24/21 12:00 Intake & Output 09/23/21 09/24/21 09/24/21 18:59 06:59 18:59 Intake Total 1756 1060 620 Output Total 90 965 190 Balance 1666 95 430 Weight 115.666 kg 126.4 kg Intake: IV 500 640 120 0.9@20mls/hr 140 120 Sodium Chloride 0.9% 500 500 500 ml 500 ml @ 999 mls/hr IV .Q31M [facility] Rx#:[id number] Intake, IV Titration 200 Amount Piperacillin-Tazobactam 3 100 .375 gm In Sodium Chloride 0.9% 100 ml @ 25 mls/hr IVPB Q8H [facility] Rx#: [id number] Piperacillin-Tazobactam 3 100 .375 gm In Sodium Chloride 0.9% 100 ml @ 25 mls/hr IVPB Q8HR [facility] Rx# :[id number] Oral 220 500 Blood Product 1256 Ffp 24 Cpd Unit 325 [id number] Ffp 24 Cpd Unit 303 [id number] Output: Urine 90 665 190 Straight 25 Emesis 300 Other: Voiding Method Indwelling Catheter Indwelling Catheter Indwelling Catheter # Bowel Movements 1 - Labs CBC & Chem 7: 09/24/21 06:54 09/24/21 06:54 Labs: Abnormal Lab Results - Last 24 Hours (Table) 09/23/21 09/23/21 09/23/21 Range/Units 13:47 14:13 14:21 RBC (4.30-5.90) m/uL Hgb (13.0-17.5) gm/dL Hct (39.0-53.0) % MCV (80.0-100.0) fL MCH (25.0-35.0) pg RDW (11.5-15.5) % Plt Count (150-450) k/uL Macrocytosis PT (9.0-12.0) sec INR (<1.2) Sodium (137-145) mmol/L Chloride (98-107) mmol/L BUN (9-20) mg/dL Creatinine (0.66-1.25) mg/dL POC Glucose (mg/dL) 115 H (75-99) mg/dL Osmolality 264 L (280-301) mosm/kg Plasma Lactic Acid Vinh 11.2 H* (0.7-2.0) mmol/L Total Bilirubin (0.2-1.3) mg/dL AST (17-59) U/L ALT (4-49) U/L Alkaline Phosphatase (38-126) U/L Ammonia (<30) umol/L Total Protein (6.3-8.2) g/dL Albumin (3.5-5.0) g/dL Ur Random Sodium (40-220) mmol/L 09/23/21 09/23/21 09/23/21 Range/Units 14:45 18:54 21:22 RBC (4.30-5.90) m/uL Hgb (13.0-17.5) gm/dL Hct (39.0-53.0) % MCV (80.0-100.0) fL MCH (25.0-35.0) pg RDW (11.5-15.5) % Plt Count (150-450) k/uL Macrocytosis PT (9.0-12.0) sec INR (<1.2) Sodium (137-145) mmol/L Chloride (98-107) mmol/L BUN (9-20) mg/dL Creatinine (0.66-1.25) mg/dL POC Glucose (mg/dL) (75-99) mg/dL Osmolality (280-301) mosm/kg Plasma Lactic Acid Vinh 8.1 H* 7.3 H* (0.7-2.0) mmol/L Total Bilirubin (0.2-1.3) mg/dL AST (17-59) U/L ALT (4-49) U/L Alkaline Phosphatase (38-126) U/L Ammonia (<30) umol/L Total Protein (6.3-8.2) g/dL Albumin (3.5-5.0) g/dL Ur Random Sodium <20 L (40-220) mmol/L 09/24/21 09/24/21 09/24/21 Range/Units 00:00 04:00 06:54 RBC (4.30-5.90) m/uL Hgb (13.0-17.5) gm/dL Hct (39.0-53.0) % MCV (80.0-100.0) fL MCH (25.0-35.0) pg RDW (11.5-15.5) % Plt Count (150-450) k/uL Macrocytosis PT (9.0-12.0) sec INR (<1.2) Sodium 126 L (137-145) mmol/L Chloride 87 L (98-107) mmol/L BUN 6 L (9-20) mg/dL Creatinine 2.86 H (0.66-1.25) mg/dL POC Glucose (mg/dL) (75-99) mg/dL Osmolality (280-301) mosm/kg Plasma Lactic Acid Vinh 6.8 H* 6.2 H* (0.7-2.0) mmol/L Total Bilirubin 28.9 H* (0.2-1.3) mg/dL AST 963 H (17-59) U/L ALT 83 H (4-49) U/L Alkaline Phosphatase 142 H (38-126) U/L Ammonia (<30) umol/L Total Protein 6.1 L (6.3-8.2) g/dL Albumin 2.3 L (3.5-5.0) g/dL Ur Random Sodium (40-220) mmol/L 09/24/21 09/24/21 09/24/21 Range/Units 06:54 06:54 06:54 RBC 2.92 L (4.30-5.90) m/uL Hgb 11.4 L (13.0-17.5) gm/dL Hct 34.5 L (39.0-53.0) % MCV 118.0 H D (80.0-100.0) fL MCH 39.0 H (25.0-35.0) pg RDW 17.8 H (11.5-15.5) % Plt Count 45 L (150-450) k/uL Macrocytosis Marked A PT 28.3 H (9.0-12.0) sec INR 2.8 H (<1.2) Sodium (137-145) mmol/L Chloride (98-107) mmol/L BUN (9-20) mg/dL Creatinine (0.66-1.25) mg/dL POC Glucose (mg/dL) (75-99) mg/dL Osmolality (280-301) mosm/kg Plasma Lactic Acid Vinh (0.7-2.0) mmol/L Total Bilirubin (0.2-1.3) mg/dL AST (17-59) U/L ALT (4-49) U/L Alkaline Phosphatase (38-126) U/L Ammonia 47 H (<30) umol/L Total Protein (6.3-8.2) g/dL Albumin (3.5-5.0) g/dL Ur Random Sodium (40-220) mmol/L 09/24/21 Range/Units 06:54 RBC (4.30-5.90) m/uL Hgb (13.0-17.5) gm/dL Hct (39.0-53.0) % MCV (80.0-100.0) fL MCH (25.0-35.0) pg RDW (11.5-15.5) % Plt Count (150-450) k/uL Macrocytosis PT (9.0-12.0) sec INR (<1.2) Sodium (137-145) mmol/L Chloride (98-107) mmol/L BUN (9-20) mg/dL Creatinine (0.66-1.25) mg/dL POC Glucose (mg/dL) (75-99) mg/dL Osmolality (280-301) mosm/kg Plasma Lactic Acid Vinh 5.4 H* (0.7-2.0) mmol/L Total Bilirubin (0.2-1.3) mg/dL AST (17-59) U/L ALT (4-49) U/L Alkaline Phosphatase (38-126) U/L Ammonia (<30) umol/L Total Protein (6.3-8.2) g/dL Albumin (3.5-5.0) g/dL Ur Random Sodium (40-220) mmol/L Microbiology - Last 24 Hours (Table) 09/23/21 03:15 Urine Culture - Final Urine,Voided
[2021-09-24 14:19] VITALS: BP 105/69
--- NOTE | 2021-09-24 14:59 | P.DS ---
Providers Date of admission: 09/22/21 18:37 Expected date of discharge: 09/24/21 Attending physician: Cong Echevarria Consults: 09/22/21 22:14 Consult Physician Urgent Consulting Provider: Carla Gold Consult Reason/Comments: Acute appendicitis Do you want consulting provider notified?: Yes 09/23/21 08:50 Consult Physician Urgent Consulting Provider: Héctor Up Consult Reason/Comments: arf, hyponatremia, liver disease Do you want consulting provider notified?: Yes Consult Physician Urgent Consulting Provider: Leona Dorman Consult Reason/Comments: liver failure, ascites, bili 28 Do you want consulting provider notified?: Yes 09/23/21 12:26 Consult Physician Routine Consulting Provider: Dilan Ledesma Consult Reason/Comments: ascites, liver failure Do you want consulting provider notified?: Yes Primary care physician: Jonh Browninghven [facility] Course: Final diagnosis Acute hepatic failure secondary to alcoholic hepatitis and cirrhosis of the l iver. 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 Ascites Gait dysfunction. History of chronic EtOH Hepatic encephalopathy history of chronic abdominal aortic dissection. Morbid Obesity BMI of 43.6 Full code Discharge disposition Patient is being transferred in a stable condition with guarded prognosis to [facility] and was accepted by hospitalist, Dr. Salazar and will be consulted and GI along with nephrology. Patient will follow- up with Dr. Ribeiro in the outpatient setting upon discharge. Total time taken is greater than 35 minutes. Hospital course This is a 51-year-old male who was recently admitted with generalized weakness, abdominal pain, and jaundice with possible alcoholic hepatitis and was being closely monitored. Patient was also found to have an elevated ammonia level and significant ascites and patient is severely jaundiced. On admission patient lactic acid was elevated at 13.4 and bilirubin was 29.1. Patient also found to be hyponatremic and continues to have worsening kidney functions as creatinine is currently 2.86. Patient lactic acid continues to be elevated and bilirubin today is 28.9, LFTs elevated and ammonia remains 47. Patient is alert and oriented 3. Covid testing was negative. Patient's INR elevated as well and currently 2.8. Interventional radiology was consulted for possible paracentesis, although INR continues to be elevated and this was discussed with Dr. Salazar from [facility] as well. Patient has been accepted and has received a bed assignment and is awaiting transportation. Currently no reports of chest pain, shortness of breath, or palpitations. Patient is afebrile. No reports of nausea or vomiting and patient is tolerating diet. Patient will be transferred to [facility] today . Extremely guarded prognosis. Physical exam: Gen: This is a 51-year-old male who is alert and oriented 3, morbidly obese, well-developed, well-nourished. Temp is 98.3F, pulse is 87, respirations are 16, blood pressure is 105/69, oxygen saturation is 93% on room air. HEENT: Head is atraumatic, normocephalic. Pupils equal, round. Sclerae is icteric. Patient is jaundiced NECK: Supple. No JVD. No lymphadenopathy. No thyromegaly. LUNGS: Diminished breath sounds bilaterally with some scattered rhonchi. No intercostal retractions. HEART: Regular rate and rhythm. No murmur. ABDOMEN: Soft. Obese, tympanic, distended Bowel sounds are present. No masses. tenderness. EXTREMITIES: No pedal edema. No calf tenderness. NEUROLOGICAL: Patient is awake, alert and oriented x3. Cranial nerves 2 through 12 are grossly intact. Diffusely weak Please refer to medication reconciliation sheet for a list of medications. The impression and plan of care has been dictated by April Thompson, Nurse Practitioner as directed. Dr. Wale MD I have performed a history and examination and MDM of this patient, discussed the same with the dictator, and agree with the dictator's assessment and plan as written ,documented as a scribe. Based on total visit time, I have performed more than 50% of the visit. Patient Condition at Discharge: Fair Plan - Discharge Summary Discharge Rx Participant: Yes New Discharge Prescriptions: No Action cloNIDine HCL [Catapres] 0.3 mg PO TID Loperamide HCl [Imodium A-D] 2 - 4 mg PO QID PRN PRN Reason: Diarrhea Furosemide [Lasix] 20 mg PO DAILY Aspirin EC [Ecotrin Low Dose] 81 mg PO DAILY Doxazosin [Cardura] 4 mg PO DAILY #30 tab Cyclobenzaprine [Flexeril] 10 mg PO HS #30 tab Budesonide/Formoterol Fumarate [Symbicort 160-4.5 Mcg Inhaler] 2 puff INHALATION RT-BID Albuterol Inhaler [Ventolin Hfa Inhaler] 2 puff INHALATION RT-QID PRN PRN Reason: Shortness Of Breath lisinopriL [Zestril] 20 mg PO DAILY Labetalol HCl [Trandate] 300 mg PO DAILY Ergocalciferol (Vitamin D2) [Drisdol (50,000 Iu)] 1,250 mcg PO Q7D Discharge Medication List Aspirin EC [Ecotrin Low Dose] 81 mg PO DAILY 05/08/21 [History] Doxazosin [Cardura] 4 mg PO DAILY #30 tab 05/10/21 [Rx] Cyclobenzaprine [Flexeril] 10 mg PO HS #30 tab 08/15/21 [Rx] Albuterol Inhaler [Ventolin Hfa Inhaler] 2 puff INHALATION RT-QID PRN 09/22/21 [History] Budesonide/Formoterol Fumarate [Symbicort 160-4.5 Mcg Inhaler] 2 puff INHALATION RT-BID 09/22/21 [History] Ergocalciferol (Vitamin D2) [Drisdol (50,000 Iu)] 1,250 mcg PO Q7D 09/22/21 [History] Furosemide [Lasix] 20 mg PO DAILY 09/22/21 [History] Labetalol HCl [Trandate] 300 mg PO DAILY 09/22/21 [History] Loperamide HCl [Imodium A-D] 2 - 4 mg PO QID PRN 09/22/21 [History] cloNIDine HCL [Catapres] 0.3 mg PO TID 09/22/21 [History] lisinopriL [Zestril] 20 mg PO DAILY 09/22/21 [History] Follow up Appointment(s)/Referral(s): Jonh Frey MD [Primary Care Provider] - 1-2 days
[2021-09-24 15:03] VITALS: PULSE 88; RESP 20
[2021-09-24] MEDS ORDERED: ALBUMIN HUMAN 25% 50 ML in EMPTY BAG 1 BAG IVPB SCH (17:00)
[2021-09-29] MEDS ORDERED: ERGOCALCIFEROL 1,250 MCG (50,000 IU) CAPSULE PO SCH (09:00)
== END 2021-09-24 16:00 | DRG 432 ==
LOC: EC 13:08 → 4SSUR 18:37 → 2SICU 09-23 13:40
PROVIDERS: ADMIT Hospitalist; ATTEND Hospitalist
PROC: 06HM33Z Insertion of Infusion Device into Right Femoral Vein, Percutaneous Approach (ICD-10-PCS; principal; 2021-09-23)
DX: K70.40 Alcoholic hepatic failure without coma (principal); I71.02 Dissection of abdominal aorta; K76.7 Hepatorenal syndrome; N17.0 Acute kidney failure with tubular necrosis; D68.4 Acquired coagulation factor deficiency; E87.1 Hypo-osmolality and hyponatremia; E87.2 Acidosis; K35.80 Unspecified acute appendicitis; K70.11 Alcoholic hepatitis with ascites; K70.31 Alcoholic cirrhosis of liver with ascites; Z20.822 Contact with and (suspected) exposure to COVID-19; D69.59 Other secondary thrombocytopenia; E16.2 Hypoglycemia, unspecified; E83.42 Hypomagnesemia; E87.70 Fluid overload, unspecified; I11.9 Hypertensive heart disease without heart failure; K76.0 Fatty (change of) liver, not elsewhere classified; K80.20 Calculus of gallbladder without cholecystitis without obstruction; Z79.51 Long term (current) use of inhaled steroids; Z79.82 Long term (current) use of aspirin; Z79.899 Other long term (current) drug therapy; R26.9 Unspecified abnormalities of gait and mobility; F10.21 Alcohol dependence, in remission; G62.9 Polyneuropathy, unspecified; E66.9 Obesity, unspecified; Z68.39 Body mass index [BMI] 39.0-39.9, adult
CPT/HCPCS: 71046; 74176; 76705; 80053; 80074; 81001; 82140; 83605; 83735; 83880; 83930; 83935; 84100; 84300; 84443; 84484; 85025; 85027; 85610; 85730; 86850; 86900; 86901; 87086; 87635; 93005; 94640; 99285